=== PATIENT | male | born 1985 | race Hispanic/Latino ===

== ENCOUNTER 2023-08-01 16:51 | Emergency (ER) | payer BC, OTHER ==
[~2023-08-01] VITALS: Ht 172.7 cm; Wt 58.1 kg
[2023-08-01 17:20] LABS: BASOPHILS # (AUTO) 0.04 K/uL (0.00-0.20); BASOPHILS % (AUTO) 0.7 % (0.0-5.0); EOSINOPHILS # (AUTO) 0.09 K/uL (0.00-0.70); EOSINOPHILS % (AUTO) 1.7 % (0.0-8.0); HEMATOCRIT 33.8 % (42-54); IMMATURE GRANULOCYTE ABSOLUTE 0.03 K/uL (0-1); LYMPHOCYTES # (AUTO) 1.6 K/uL (1.0-4.8); LYMPHOCYTES % (AUTO) 29.1 % (21.0-51.0); MEAN CORPUSCULAR HEMOGLOBIN 30.5 pg (27.0-33.0); MEAN CORPUSCULAR HGB CONC 33.4 g/dL (32.0-36.0); MEAN CORPUSCULAR VOLUME 91.4 fL (79-99); MONOCYTES # (AUTO) 0.4 K/uL (0.1-1.0); MONOCYTES % (AUTO) 7.2 % (3.0-13.0); NEUTROPHILS # (AUTO) 3.3 K/uL (1.8-7.7); NEUTROPHILS % (AUTO) 60.7 % (40.0-77.0); PLATELET COUNT (AUTO) 399 K/uL (130-400); RED CELL DISTRIBUTION WIDTH 13.2 % (11.0-15.5); WHITE BLOOD COUNT (AUTO) 5.4 K/uL (4.8-10.8)
[2023-08-01 17:30] LABS: CARBON DIOXIDE 30 mmol/L (21-32); CHLORIDE 91 mmol/L (101-111); CREATININE 0.6 mg/dL (0.5-1.5); GLOMERULAR FILTR. RATE CALC 127 mL/min (>90); GLUCOSE,RANDOM 290 mg/dL (70-105); POTASSIUM 4.5 mmol/L (3.5-5.1); SODIUM SERUM 129 mmol/L (136-145); UREA NITROGEN, BLOOD 12 mg/dL (7-18)
[2023-08-01 17:34] LABS: ALANINE AMINOTRANSFERASE 105 U/L (12-78); ALBUMIN 3.5 g/dL (3.5-5.0); ALCOHOL, BLOOD 127 mg/dL (0-10); ASPARTATE AMINOTRANSFERASE 19 U/L (10-37); BILIRUBIN,TOTAL 0.2 mg/dL (0.2-1.0)
[2023-08-01 17:35] LABS: ACETAMINOPHEN < 1 mcg/mL (10-29); SALICYLATE < 2.8 mg/dL (2.8-20.0)
[2023-08-01 17:54] LABS: APPEARANCE,URINE CLEAR (CLEAR); BILIRUBIN,URINE NEGATIVE (NEGATIVE); COLOR,URINE LIGHT-YELLOW (YELLOW); GLUCOSE, URINE (UA) 200 mg/dL (NEGATIVE); KETONES,URINE NEGATIVE (NEGATIVE); LEUKOCYTE ESTERASE ,URINE NEGATIVE Leu/uL (NEGATIVE); NITRATE,URINE NEGATIVE (NEGATIVE); OCCULT BLOOD,URINE NEGATIVE (NEGATIVE); PH,URINE 5.5 (5.0-8.0); PROTEIN,URINE NEGATIVE (NEGATIVE); UROBILINOGEN,URINE 0.2 mg/dL (0.2-1.0)
[2023-08-01 17:56] LABS: ADD UA MICROSCOPIC YES
[2023-08-01 18:02] LABS: AMPHET/METH SCREEN,URINE NEGATIVE (NEGATIVE); BACTERIA,URINE RARE /HPF (None Seen); BARBITURATE SCREEN, URINE NEGATIVE (NEGATIVE); BENZODIAZEPINES SCREEN,URINE NEGATIVE (NEGATIVE); CANNABINOID SCREEN,URINE POSITIVE (NEGATIVE); COCAINE SCREEN,URINE POSITIVE (NEGATIVE); OPIATE SCREEN,URINE NEGATIVE (NEGATIVE); PHENCYCLIDINE SCREEN,URINE NEGATIVE (NEGATIVE); RBC,URINE 0-1 /HPF (0-1); WBC CLUMP RARE /HPF (0-1)
[2023-08-01] MEDS: 0.9%NACL 1000ML 1,000 ML IV ONE (19:06)
[2023-08-01] MEDS: INSULIN HUMULIN R 100 UNIT/ML 3ML IV ONE (19:07)
[2023-08-02 03:47] VITALS: BP 120/72; PULSE 74; RESP 16; O2SAT 99
[2023-08-02] MEDS: LORAZEPAM 2 MG/ML 1 ML VIAL IVP ONE (05:50)
[2023-08-02] MEDS: M.V.I. IV [ADULT] 10 ML, FOLIC ACID 1 MG, THIAMINE HCL 100 MG in 0.9%NACL 1000ML 1,000 ML IV SCH (05:50)
[2023-08-02] MEDS: NITROGLYCERIN 1GM OINT 1 INCH/1GM TD ONE (05:50)
[2023-08-02] MEDS: THIAMINE HCL 100 MG/ML 2ML VIAL ONE (05:50)
[2023-08-02] MEDS: COMPOUND IV MISC 1 EACH IVSOLN MISC SCH (05:50)
[2023-08-02] MEDS: M.V.I. IV [ADULT] 10 ML VIAL IV ONE (05:51)
[2023-08-02] MEDS: FOLIC ACID 5 MG/ML VIAL ONE (05:51)
== END 2023-08-02 10:25 ==
LOC: EDH 16:51
DX: R45.851 Suicidal ideations (principal); F19.10 Other psychoactive substance abuse, uncomplicated; F41.9 Anxiety disorder, unspecified; F32.A Depression, unspecified; E11.9 Type 2 diabetes mellitus without complications; Z98.890 Other specified postprocedural states; Z79.899 Other long term (current) drug therapy
CPT/HCPCS: 99285; 96361; 96375 ×2; 80053; 80305; 85025; 82948; 36415; 81001; 96365; J1815; G0481; J7030; J3411 ×2; J2060; J3490 ×2

== ENCOUNTER 2023-09-04 01:44 | Inpatient (IN) | payer BC, OTHER ==
[~2023-09-04] VITALS: Ht 172.7 cm; Wt 52.6 kg
[2023-09-04] VITALS (9 sets, daily range): BP systolic 115–149; BP diastolic 63–98; PULSE 83–89; RESP 11–19; O2SAT 96–97
[2023-09-04 01:59] LABS: BASE EXCESS,VENOUS BLOOD GAS 0.1 (-2.0-3.0); DEVICE COMMENT VLINE RN JOSE; HCO3,VENOUS BLOOD GAS 26.5 (21.0-28.0); PCO2,VENOUS BLOOD GAS 50 (32-45); PH,VENOUS BLOOD GAS 7.345 (7.350-7.450); VENT MODE, BG ROOMAIR (ROOM AIR)
[2023-09-04 02:07] LABS: BASOPHILS # (AUTO) 0.03 K/uL (0.00-0.20); BASOPHILS % (AUTO) 0.4 % (0.0-5.0); EOSINOPHILS # (AUTO) 0.04 K/uL (0.00-0.70); EOSINOPHILS % (AUTO) 0.6 % (0.0-8.0); HEMATOCRIT 32.9 % (42-54); IMMATURE GRANULOCYTE ABSOLUTE 0.02 K/uL (0-1); LYMPHOCYTES # (AUTO) 1.8 K/uL (1.0-4.8); LYMPHOCYTES % (AUTO) 26.4 % (21.0-51.0); MEAN CORPUSCULAR HGB CONC 35.6 g/dL (32.0-36.0); MEAN CORPUSCULAR VOLUME 89.9 fL (79-99); MONOCYTES # (AUTO) 0.6 K/uL (0.1-1.0); MONOCYTES % (AUTO) 8.4 % (3.0-13.0); NEUTROPHILS # (AUTO) 4.4 K/uL (1.8-7.7); NEUTROPHILS % (AUTO) 63.9 % (40.0-77.0); PLATELET COUNT (AUTO) 270 K/uL (130-400); RED BLOOD CELL COUNT(AUTO) 3.66 MIL/uL (4.50-6.20); RED CELL DISTRIBUTION WIDTH 12.2 % (11.0-15.5); WHITE BLOOD COUNT (AUTO) 6.9 K/uL (4.8-10.8)
[2023-09-04 02:14] LABS: ADD UA MICROSCOPIC YES; APPEARANCE,URINE CLEAR (CLEAR); BILIRUBIN,URINE NEGATIVE (NEGATIVE); COLOR,URINE LIGHT-YELLOW (YELLOW); GLUCOSE, URINE (UA) >=1000 mg/dL (NEGATIVE); KETONES,URINE NEGATIVE (NEGATIVE); LEUKOCYTE ESTERASE ,URINE NEGATIVE Leu/uL (NEGATIVE); NITRATE,URINE NEGATIVE (NEGATIVE); OCCULT BLOOD,URINE NEGATIVE (NEGATIVE); PROTEIN,URINE NEGATIVE (NEGATIVE); UROBILINOGEN,URINE 0.2 mg/dL (0.2-1.0)
[2023-09-04 02:16] LABS: BACTERIA,URINE RARE /HPF (None Seen); MUCUS,URINE FEW LPF (None Seen); WBC,URINE 0-1 /HPF (0-1)
[2023-09-04 02:29] LABS: ALBUMIN 3.7 g/dL (3.5-5.0); BILIRUBIN,TOTAL 0.2 mg/dL (0.2-1.0); CREATININE 1.5 mg/dL (0.5-1.5); MAGNESIUM 2.1 mg/dL (1.80-2.40); POTASSIUM 3.7 mmol/L (3.5-5.1); TOTAL PROTEIN, SERUM 7.2 g/dL (6.0-8.3)
[2023-09-04] MEDS ORDERED: INSULIN REGULAR, HUMAN 3ML 100 UNIT in 0.9%NACL 100ML 99 ML IV SCH (03:00)
[2023-09-04] MEDS: INSULIN HUMULIN R 100 UNIT/ML 3ML ONE (03:10)
[2023-09-04] MEDS: 0.9%NACL 1000ML 2,500 ML IV ONE (03:22)
[2023-09-04] MEDS: INSULIN REGULAR, HUMAN 3ML 100 UNIT in 0.9%NACL 100ML 100 ML IV SCH ×2 (03:48→05:24)
[2023-09-04 04:32] LABS: AMPHET/METH SCREEN,URINE NEGATIVE (NEGATIVE); BARBITURATE SCREEN, URINE NEGATIVE (NEGATIVE); BENZODIAZEPINES SCREEN,URINE NEGATIVE (NEGATIVE); CANNABINOID SCREEN,URINE POSITIVE (NEGATIVE); COCAINE SCREEN,URINE POSITIVE (NEGATIVE); OPIATE SCREEN,URINE NEGATIVE (NEGATIVE); PHENCYCLIDINE SCREEN,URINE NEGATIVE (NEGATIVE)
[2023-09-04] MEDS ORDERED: PHARMACY COMMUNICATION MISC PRN ×2 (05:00→10:00)
[2023-09-04] MEDS ORDERED: FAMOTIDINE 20MG VIAL IV PRN (05:00)
[2023-09-04] MEDS: D5W-1/2 NS/20MEQ KCL 1,000 ML IV ONE (05:00)
[2023-09-04] MEDS ORDERED: ONDANSETRON 4MG INJ IV PRN (05:00)
[2023-09-04] MEDS: D5W-1/2 NS/20MEQ KCL 1,000 ML IV SCH (05:23)
[2023-09-04] MEDS: 0.9%NACL 1000ML 1,000 ML IV SCH (05:24)
[2023-09-04] MEDS: POTASSIUM CHLORIDE 10MEQ/100ML 100 ML IV PRN (05:51)
[2023-09-04 07:38] LABS: BASOPHILS # (AUTO) 0.04 K/uL (0.00-0.20); BASOPHILS % (AUTO) 0.6 % (0.0-5.0); EOSINOPHILS # (AUTO) 0.06 K/uL (0.00-0.70); EOSINOPHILS % (AUTO) 0.9 % (0.0-8.0); HEMATOCRIT 29.5 % (42-54); IMMATURE GRANULOCYTE ABSOLUTE 0.03 K/uL (0-1); LYMPHOCYTES # (AUTO) 1.7 K/uL (1.0-4.8); LYMPHOCYTES % (AUTO) 25.3 % (21.0-51.0); MEAN CORPUSCULAR HEMOGLOBIN 31.4 pg (27.0-33.0); MEAN CORPUSCULAR HGB CONC 35.3 g/dL (32.0-36.0); MEAN CORPUSCULAR VOLUME 89.1 fL (79-99); MONOCYTES # (AUTO) 0.6 K/uL (0.1-1.0); MONOCYTES % (AUTO) 9.6 % (3.0-13.0); NEUTROPHILS # (AUTO) 4.1 K/uL (1.8-7.7); NEUTROPHILS % (AUTO) 63.1 % (40.0-77.0); PLATELET COUNT (AUTO) 260 K/uL (130-400); RED BLOOD CELL COUNT(AUTO) 3.31 MIL/uL (4.50-6.20); WHITE BLOOD COUNT (AUTO) 6.6 K/uL (4.8-10.8)
[2023-09-04 07:45] LABS: HEMOGLOBIN A1C 12.9 % (4.0-6.0)
[2023-09-04] MEDS ORDERED: INSU100V12 SQ (07:50)
[2023-09-04 07:57] LABS: ALBUMIN 3.5 g/dL (3.5-5.0); BILIRUBIN,TOTAL 0.2 mg/dL (0.2-1.0); CREATININE 0.9 mg/dL (0.5-1.5); MAGNESIUM 1.9 mg/dL (1.80-2.40); POTASSIUM 3.3 mmol/L (3.5-5.1); THYROID STIMULATING HORMONE 1.54 uIU/mL (0.36-3.74); TOTAL PROTEIN, SERUM 6.8 g/dL (6.0-8.3)
[2023-09-04] MEDS: INSULIN GLARGINE 100 UNITS/ML 10 ML VIAL SQ ONE ×2 (08:09→22:30)
[2023-09-04] MEDS: THIAMINE HCL IV SCH (08:12)
[2023-09-04] MEDS: M V I IV SCH (08:12)
[2023-09-04] MEDS: FOLIC ACID IV SCH (08:12)
[2023-09-04] MEDS: [UNRECOGNIZED DRUG - OTHER] IV SCH (08:12)
[2023-09-04 08:17] LABS: INR <= 0.93 (0.85-1.15); PROTHROMBIN TIME 10.6 SEC (9.6-11.6)
[2023-09-04 08:22] LABS: MAGNESIUM 1.9 mg/dL (1.80-2.40); PHOSPHORUS 3.1 mg/dL (2.5-4.9)
[2023-09-04] MEDS: MAGNESIUM 2GM PREMIX 50ML 50 ML IV SCH (08:44)
[2023-09-04] MEDS ORDERED: POTASSIUM CHLORIDE 10% ELIXIR 20 MEQ/15 ML UDCUP PO PRN (09:00)
[2023-09-04] MEDS ORDERED: POTASSIUM CHLORIDE 20MEQ/100ML 100 ML IV PRN (09:00)
[2023-09-04] MEDS ORDERED: MAGNESIUM 2GM PREMIX 50ML 50 ML IV PRN (09:00)
[2023-09-04 09:34] LABS: SARS-CoV-2, RNA, NAAT NEGATIVE SARS CoV-2 (NEGATIVE)
[2023-09-04 09:40] LABS: INFLUENZA TYPE A Negative For Type A (NEGATIVE); INFLUENZA TYPE B Negative For Type B (NEGATIVE)
[2023-09-04 09:50] LABS: HIV 1&2 ANTIBODY Non-Reactive (Negative); HIV-1 p24 Antigen Non-Reactive (Negative)
[2023-09-04] MEDS: ENOXAPARIN SODIUM 30 MG/0.3 ML SQ SCH (09:56)
[2023-09-04] MEDS: THIAMINE HCL 100 MG/ML 2ML VIAL IVP SCH (09:56)
[2023-09-04] MEDS: FAMOTIDINE 20MG VIAL IV SCH (09:57)
[2023-09-04] MEDS ORDERED: LORAZEPAM 2 MG/ML 1 ML VIAL IVP PRN (10:00)
[2023-09-04] MEDS: INSULIN HUMULIN R 100 UNIT/ML 3ML SQ SCH (11:18)
[2023-09-04 13:57] LABS: CREATININE 0.9 mg/dL (0.5-1.5); POTASSIUM 3.7 mmol/L (3.5-5.1)
[2023-09-04 17:49] LABS: CREATININE 0.9 mg/dL (0.5-1.5); POTASSIUM 3.8 mmol/L (3.5-5.1)
[2023-09-04] MEDS: INSULIN GLARGINE 100 UNITS/ML 10 ML VIAL SQ SCH (20:38)
[2023-09-04] MEDS ORDERED: DEXTROSE 50%-WATER 50 ML DISP.SYRIN IV PRN (23:00)
[2023-09-04] MEDS ORDERED: GLUCAGON 1MG KIT 1 MG ML IM PRN (23:00)
[2023-09-04 23:12] LABS: CREATININE 1.1 mg/dL (0.5-1.5); POTASSIUM 3.5 mmol/L (3.5-5.1)
[2023-09-05] VITALS (8 sets, daily range): BP systolic 141–153; BP diastolic 78–104; PULSE 74–81; RESP 17–19; O2SAT 98–100
[2023-09-05 04:28] LABS: BASOPHILS # (AUTO) 0.03 K/uL (0.00-0.20); BASOPHILS % (AUTO) 0.4 % (0.0-5.0); EOSINOPHILS # (AUTO) 0.11 K/uL (0.00-0.70); EOSINOPHILS % (AUTO) 1.6 % (0.0-8.0); HEMATOCRIT 29.5 % (42-54); IMMATURE GRANULOCYTE ABSOLUTE 0.02 K/uL (0-1); LYMPHOCYTES # (AUTO) 1.9 K/uL (1.0-4.8); LYMPHOCYTES % (AUTO) 26.6 % (21.0-51.0); MEAN CORPUSCULAR HEMOGLOBIN 31.4 pg (27.0-33.0); MEAN CORPUSCULAR HGB CONC 34.6 g/dL (32.0-36.0); MEAN CORPUSCULAR VOLUME 90.8 fL (79-99); MONOCYTES # (AUTO) 0.8 K/uL (0.1-1.0); MONOCYTES % (AUTO) 11.9 % (3.0-13.0); NEUTROPHILS # (AUTO) 4.2 K/uL (1.8-7.7); NEUTROPHILS % (AUTO) 59.2 % (40.0-77.0); PLATELET COUNT (AUTO) 248 K/uL (130-400); RED BLOOD CELL COUNT(AUTO) 3.25 MIL/uL (4.50-6.20); RED CELL DISTRIBUTION WIDTH 12.2 % (11.0-15.5)
[2023-09-05 04:44] LABS: ALBUMIN 2.9 g/dL (3.5-5.0); BILIRUBIN,TOTAL 0.2 mg/dL (0.2-1.0); CREATININE 0.7 mg/dL (0.5-1.5); POTASSIUM 3.3 mmol/L (3.5-5.1); TOTAL PROTEIN, SERUM 6.1 g/dL (6.0-8.3)
[2023-09-05] MEDS: INSULIN HUMULIN R 100 UNIT/ML 3ML SQ SCH (06:57)
[2023-09-05] MEDS: INSULIN GLARGINE 100 UNITS/ML 10 ML VIAL SQ SCH ×2 (06:58→20:36)
[2023-09-05] MEDS: KCL 20 MEQ ERTAB PO PRN (09:19)
[2023-09-05] MEDS: LISINOPRIL 2.5 MG TABLET PO SCH (09:19)
[2023-09-05] MEDS: FAMOTIDINE 20MG TAB PO SCH (20:36)
[2023-09-05] MEDS ORDERED: INSULIN GLARGINE 100 UNITS/ML 10 ML VIAL SQ SCH (21:00)
[2023-09-06] VITALS (10 sets, daily range): BP systolic 121–165; BP diastolic 77–108; PULSE 66–85; RESP 17–19; O2SAT 98–99
[2023-09-06 03:54] LABS: BASOPHILS # (AUTO) 0.03 K/uL (0.00-0.20); BASOPHILS % (AUTO) 0.5 % (0.0-5.0); EOSINOPHILS # (AUTO) 0.08 K/uL (0.00-0.70); EOSINOPHILS % (AUTO) 1.3 % (0.0-8.0); HEMATOCRIT 29.6 % (42-54); IMMATURE GRANULOCYTE ABSOLUTE 0.02 K/uL (0-1); LYMPHOCYTES # (AUTO) 1.5 K/uL (1.0-4.8); LYMPHOCYTES % (AUTO) 24.6 % (21.0-51.0); MEAN CORPUSCULAR HEMOGLOBIN 31.3 pg (27.0-33.0); MEAN CORPUSCULAR HGB CONC 33.4 g/dL (32.0-36.0); MEAN CORPUSCULAR VOLUME 93.7 fL (79-99); MONOCYTES # (AUTO) 0.7 K/uL (0.1-1.0); NEUTROPHILS # (AUTO) 3.9 K/uL (1.8-7.7); NEUTROPHILS % (AUTO) 62.3 % (40.0-77.0); PLATELET COUNT (AUTO) 215 K/uL (130-400); RED BLOOD CELL COUNT(AUTO) 3.16 MIL/uL (4.50-6.20); RED CELL DISTRIBUTION WIDTH 11.9 % (11.0-15.5); WHITE BLOOD COUNT (AUTO) 6.3 K/uL (4.8-10.8)
[2023-09-06 04:13] LABS: BILIRUBIN,TOTAL 0.1 mg/dL (0.2-1.0); CREATININE 0.9 mg/dL (0.5-1.3); POTASSIUM 3.9 mmol/L (3.5-5.1); TOTAL PROTEIN, SERUM 6.2 g/dL (6.0-8.3)
[2023-09-06] MEDS: INSULIN HUMULIN R 100 UNIT/ML 3ML SQ SCH ×2 (06:25→06:26)
[2023-09-06] MEDS: INSULIN GLARGINE 100 UNITS/ML 10 ML VIAL SQ SCH (08:52)
[2023-09-06] MEDS: HYDRALAZINE 20MG/ML VIAL IV PRN (17:56)
[2023-09-06] MEDS: CHLORDIAZEPOXIDE HCL 25 MG CAP PO PRN (22:17)
[2023-09-07 05:42] VITALS: BP 133/89; PULSE 76; RESP 18
[2023-09-07] MEDS: INSULIN HUMULIN R 100 UNIT/ML 3ML SQ SCH (05:58)
[2023-09-07 07:41] VITALS: BP 117/80; PULSE 71; RESP 18
[2023-09-07] MEDS: INSULIN GLARGINE 100 UNITS/ML 10 ML VIAL SQ SCH (08:38)
[2023-09-07] MEDS ORDERED: INSU10VI3 SQ (10:18)
[2023-09-07 10:41] VITALS: O2SAT 98
[2023-09-07 11:52] VITALS: BP 126/82; PULSE 80; RESP 18
[2023-09-08 16:03] LABS: HEPATITIS A IGM ANTIBODY Non-Reactive (Nonreactive); HEPATITIS B CORE IGM ANTIBODY Non-Reactive (Negative); HEPATITIS B SURFACE ANTIGEN Non-Reactive (Nonreactive); HEPATITIS C ANTIBODY Non-Reactive (Nonreactive)
== END 2023-09-07 12:17 | disposition home or self-care (01) | DRG 637 ==
LOC: EDH 01:44 → EDHIP 01:45 → 2CV 07:28 → 4DH 13:30
PROVIDERS: ADMIT Internal Medicine; ATTEND Internal Medicine
DX: E11.10 Type 2 diabetes mellitus with ketoacidosis without coma (principal); K85.90 Acute pancreatitis without necrosis or infection, unspecified; E44.0 Moderate protein-calorie malnutrition; Z59.00 Homelessness unspecified; Z68.1 Body mass index [BMI] 19.9 or less, adult; F41.9 Anxiety disorder, unspecified; I10 Essential (primary) hypertension; E86.0 Dehydration; D64.9 Anemia, unspecified; F10.229 Alcohol dependence with intoxication, unspecified; I73.89 Other specified peripheral vascular diseases; Z79.4 Long term (current) use of insulin; Z91.199 Patient's noncompliance with other medical treatment and regimen due to unspecified reason
CPT/HCPCS: 36415; 36600; 71045; 80048; 80053; 80061; 80074; 80305; 81001; 82010; 82306; 82533; 82550; 82803; 82948; 83036; 83605; 83690; 83735; 83880; 84100; 84207; 84443; 84484; 85025; 85610; 85730; 86592; 86701; 87040; 87390; 87635; 87804; G0378; J0360; J1650; J1815; J3411; J3475; J3480; J3490; J7030

== ENCOUNTER 2024-07-30 00:08 | Emergency (ER) | payer OTHER ==
[~2024-07-30] VITALS: Ht 172.7 cm; Wt 59.0 kg
[~2024-07-30 00:08] MED LIST: INSU10VI3 SQ
--- NOTE | 2024-07-30 00:31 | ERN ---
ED Note History of Present Illness Stated Complaint: MEDICAL CLEARANCE, HIGH BLOOD SUGAR Chief Complaint: Medical Clearance Time Seen by MD: 00:13 Dictation: This is a 39-year-old male who was sent from [facility] unit for medical clearance. Patient has a long history of alcoholism for more than 20 years and he is seeking help at [facility]. Also has a known history of diabetes and for hyperglycemia he was sent for evaluation. Temperature 98.1 pulse 94 respirations 16 blood pressure 144/89 with a pulse oximetry of 99% on room air Chronic medical problems include diabetes mellitus, hypertension, history of pancreatitis and heavy alcoholism Allergies: Coded Allergies: No Known Drug Allergies (Unverified Allergy, Unknown, 08/01/23) Home Meds Active Scripts Insuln Asp Prt/Insulin Aspart (Novolog Mix 70-30 Vial) 100 Unit/Ml (70-30) Vial, 20 UNIT SQ AM, #1 VIAL Prov:JEREMY GARCÍA AGPCNP 09/07/23 Past Medical History Past Medical History: Alcoholism, Diabetes-Type II, Hypertension Surgical History: Other Surgical History Other: L ANKLE SX Family History: Negative Social History: ETOH, Lives with family RN Note Reviewed/Agreed w/PFSH: Yes Review of System Dictation Constitutional: Negative for fever,chills, and weight loss Eyes: Negative for injury, pain,redness, and discharge ENT: Negative for injury,pain or swelling Cardiovascular: Negative for chest pain, palpitations, and edema Respiratory: Negative for shortness of breath, cough, and wheezing, Abdomen/GI: Negative for abdominal pain, nausea, vomiting, diarrhea, and consti pation Back: Negative for injury and pain : Negative for injury, bleeding and discharge MS/Extremity: Negative for injury and deformity Skin: Negative for rash, and discoloration Neuro: Negative for headache, weakness, numbness, tingling, and seizure Psych: Negative for suicide ideation, homicidal ideation, and hallucinations Initial Vital Sign VS Vital Signs Date Time Temp Pulse Resp B/P (MAP) Pulse Ox O2 Delivery O2 Flow Rate FiO2 07/30/24 00:09 98.1 94 16 144/89 99 Room Air 0 07/30/24 01:15 21 Physical Exam Dictation General: awake, alert, NAD unkempt chronically ill-appearing Head/Face: Normocephalic, atraumatic Eyes: PERRL, EOMI, vision at baseline ENT: oral cavity clear, TMs clear, no signs of infection poor dentition Neck: Trachea midline, supple, no nuchal rigidity Cardiovascular: RRR, normal S1/S2, No MRGs, no JVD Respiratory: CTAB, no respiratory distress, No rales or wheezes Abdomen: Soft, non-tender, non-distended, normal bowel sounds, no guarding or rebound. Skin: Warm, dry, normal turgor, no rash MS/Extremity: Pulses equal, no cyanosis, neurovascular intact, FROM Neuro: COAx4, GCS 15, strength 5/5, CN 2-12 intact, normal cerebellar exam, normal gait, Psych: Normal behavior, mood, and affect normal Extremities-trace edema without any palpable cords, Homans sign is negative Results (Laboratory/Radiology) Laboratory/Radiology Laboratory Tests Test 07/30/24 00:41 07/30/24 01:35 07/30/24 04:47 07/30/24 06:27 White Blood Count 5.3 K/uL (4.8-10.8) Red Blood Count 3.80 MIL/uL (4.50-6.20) L Hemoglobin 11.5 g/dL (14.0-18.0) L Hematocrit 34.0 % (42-54) L Mean Corpuscular Volume 89.5 fL (79-99) Mean Corpuscular Hemoglobin 30.3 pg (27.0-33.0) Mean Corpuscular Hemoglobin Concent 33.8 g/dL (32.0-36.0) Red Cell Distribution Width 13.2 % (11.0-15.5) Platelet Count 282 K/uL (130-400) Mean Platelet Volume 10.1 fL (7.5-10.5) Immature Granulocyte % (Auto) 0.2 % (0-1) Neutrophils (%) (Auto) 60.5 % (40.0-77.0) Lymphocytes (%) (Auto) 28.3 % (21.0-51.0) Monocytes (%) (Auto) 8.3 % (3.0-13.0) Eosinophils (%) (Auto) 1.9 % (0.0-8.0) Basophils (%) (Auto) 0.8 % (0.0-5.0) Neutrophils # (Auto) 3.2 K/uL (1.8-7.7) Lymphocytes # (Auto) 1.5 K/uL (1.0-4.8) Monocytes # (Auto) 0.4 K/uL (0.1-1.0) Eosinophils # (Auto) 0.10 K/uL (0.00-0.70) Basophils # (Auto) 0.04 K/uL (0.00-0.20) Absolute Immature Granulocyte (auto 0.01 K/uL (0-1) Nucleated Red Blood Cells 0.0 % (0.0-0.19) Sodium Level 126 mmol/L (136-145) L Potassium Level 4.8 mmol/L (3.5-5.1) Chloride Level 87 mmol/L (101-111) *L Carbon Dioxide Level 29 mmol/L (21-32) Blood Urea Nitrogen 15 mg/dL (7-18) Creatinine 1.0 mg/dL (0.5-1.3) Glomerular Filtration Rate Calc 98 mL/min (>90) Random Glucose 667 mg/dL (70-105) *H Total Calcium 9.3 mg/dL (8.5-10.1) Lipase 14 U/L (16-77) L Salicylates Level 3.2 mg/dL (2.8-20.0) Acetaminophen Level < 1 mcg/mL (10-29) L Serum Alcohol 7 mg/dL (0-10) Urine Color COLORLESS (YELLOW) Urine Appearance CLEAR (CLEAR) Urine pH 5.0 (5.0-8.0) Urine Specific [place] 1.018 (1.001-1.031) Urine Protein NEGATIVE mg/dL (NEGATIVE) Urine Glucose (UA) >=1000 mg/dL (NEGATIVE) H Urine Ketones 5 mg/dL (NEGATIVE) H Urine Occult Blood NEGATIVE (NEGATIVE) Urine Nitrate NEGATIVE (NEGATIVE) Urine Bilirubin NEGATIVE mg/dL (NEGATIVE) Urine Urobilinogen 0.2 mg/dL (0.2-1.0) Urine Leukocyte Esterase NEGATIVE Suzi/uL Urine RBC 0-1 /HPF (0-1) Urine WBC 0-1 /HPF (0-1) Urine Squamous Epithelial Cells RARE /HPF (0-2) Urine Bacteria None /HPF (None Seen) Urine Opiates Screen NEGATIVE (NEGATIVE) Urine Barbiturates Screen NEGATIVE (NEGATIVE) Urine Phencyclidine Screen NEGATIVE (NEGATIVE) Urine Amphetamines Screen NEGATIVE (NEGATIVE) Urine Benzodiazepines Screen NEGATIVE (NEGATIVE) Urine Cocaine Screen POSITIVE (NEGATIVE) H Urine Marijuana (THC) Screen POSITIVE (NEGATIVE) H Whole Blood Glucose 352 MG/DL (70-110) H 71 MG/DL (70-110) # Bedside Glucose Comment Notified Nurse Test 07/30/24 08:09 Whole Blood Glucose 212 MG/DL (70-110) #H Bedside Glucose Comment Notified Nurse Labs Reviewed?: Yes ED Course ED Course Orders Procedure Category Date Status Time Alcohol, Blood LAB 07/30/24 Complete 00:14 Cbc With Differential LAB 07/30/24 Complete 00:14 Basic Metabolic Panel LAB 07/30/24 Complete 00:14 Acetaminophen LAB 07/30/24 Complete 00:14 Urinalysis Profile LAB 07/30/24 Complete 00:14 Drug Screen Urine LAB 07/30/24 Complete 00:14 Salicylate LAB 07/30/24 Complete 00:14 Lipase LAB 07/30/24 Complete 00:41 0.9%Nacl 1000ml (Ns PHA 07/30/24 Complete 1000ml) 01:30 Insulin Regular, PHA 07/30/24 Complete Human 3ml (Humulin R 01:30 Random Accucheck At CPOE 07/30/24 Transmitted Bedside 04:44 Insulin Regular, PHA 07/30/24 Complete Human 3ml (Humulin R 05:00 0.9%Nacl 1000ml (Ns PHA 07/30/24 Complete 1000ml) 05:00 Random Accucheck At CPOE 07/30/24 Transmitted Bedside 06:15 Current Medications Medications (Trade) Dose Ordered Sig/Maik Route PRN Reason Start Time Stop Time Status Last Admin Dose Admin Insulin Human Regular (humuLIN R 100 UNIT/ML 3ML) 10 unit ONCE ONCE SQ 07/30/24 05:00 07/30/24 05:01 DC 07/30/24 05:02 Insulin Human Regular (humuLIN R 100 UNIT/ML 3ML) 12 unit ONCE ONCE IV 07/30/24 01:30 07/30/24 01:31 DC 07/30/24 01:34 Sodium Chloride 1,000 ml @ 0 mls/hr ONCE ONCE IV 07/30/24 01:30 07/30/24 01:31 DC 07/30/24 01:32 Sodium Chloride 1,000 ml @ 0 mls/hr ONCE ONCE IV 07/30/24 05:00 07/30/24 05:01 DC 07/30/24 05:00 Vital Signs Date Time Temp Pulse Resp B/P (MAP) Pulse Ox O2 Delivery O2 Flow Rate FiO2 07/30/24 09:40 99.0 82 16 149/90 98 Room Air* 0 21 07/30/24 05:17 98.1 82 16 138/82 98 Room Air* 0 21 07/30/24 03:15 98.1 84 16 136/84 99 Room Air* 0 21 07/30/24 01:15 98.1 88 16 142/88 99 Room Air* 0 21 07/30/24 00:09 98.1 94 16 144/89 99 Room Air 0 We will perform diagnostic labs, and administer medications according to the patient's complaint. Once the results are available, will review and personally interpreted the labs to rule out any acute life-threatening emergency the trach require immediate intervention and treatment. I will then re-evaluate the patient after treatment and diagnostic exams have return to determine whether the patient requires any further testing, can safely be discharged home or need further admission to hospital for additional treatment and evaluation. CBC is with a normal limits. BNP 7 initial results showed a sodium of 126 BUN and creatinine are 15 and 1.0 with a glucose of 660. Lipase level is 14 ETOH is 7 salicylate level is 3.2 Tylenol level is pending We will initiate IV fluids and insulin and monitor Accu-Cheks closely 4:49 a.m. patient received fluids and repeat Accu-Chek was 352. Much improved than 667 at presentation We will give additional fluids and insulin 6:29 a.m.-repeat Accu-Chek 71-patient is very alert awake does not have any complaints feels better ordered breakfast for him Medical Decision Making MDM MDM: Differential diagnosis: Hyperglycemia, alcohol intoxication, dehydration Rationale: Tests considered and ordered secondary to shared decision making include: Previous outside records reviewed: Old ER visits. Risk of complication and/or morbidity or mortality of patient management: None Medications-Per medication reconciliation Need for hospitalization: Patient does not meet criteria for hospitalization. Need for emergency major/minor surgery: No There are no social concerns with this patient. Prescription drug management Prescriptions will include symptomatic care Patient's prior external medical records from other ER visits were reviewed by me as indicated. Prior testing and results from previous visits were reviewed. Prior tests were taken into account with medical decision making and resource ut ilization, independent historian/historians were used to obtain complete medical history. I independently interpreted the test that were performed, results were reviewed by me and considered findings on radiology if ordered. Medical management and examination interpretation discussions were had by me with other qualified healthcare professionals as indicated for the patient's car e. Problem List Problem List: (1) Uncontrolled diabetes mellitus with hyperglycemia (2) Alcoholism (3) Medical non-compliance (4) Substance abuse (5) Medical clearance for psychiatric admission DX & DISP Disposition: Discharge Departure Impression: Primary Impression: Uncontrolled diabetes mellitus with hyperglycemia Additional Impressions: Alcoholism, Medical non-compliance, Medical clearance for psychiatric admission Condition: Stable Additional Instructions: Patient and the caregiver have been informed of all the diagnostic tests and the imaging conducted during the today's visit to the emergency room and has verbalized understanding of the results I have personally reviewed and interpreted all diagnostic exams performed here in the ER today as well as the vital signs documented by the nursing staff. The patient is now being discharged to [facility] unit and should follow up with the primary care physician or the specialist as directed by the ER staff. Referrals: SELF,REFERRAL (PCP) Time of Disposition: 10:53 ALEISHA HORNER MD Jul 30, 2024 00:31 ROSALINDA HOLLOWAY MD Jul 30, 2024 10:54
[2024-07-30 01:02] LABS: BASOPHILS # (AUTO) 0.04 K/uL (0.00-0.20); BASOPHILS % (AUTO) 0.8 % (0.0-5.0); EOSINOPHILS % (AUTO) 1.9 % (0.0-8.0); IMMATURE GRANULOCYTE ABSOLUTE 0.01 K/uL (0-1); LYMPHOCYTES # (AUTO) 1.5 K/uL (1.0-4.8); LYMPHOCYTES % (AUTO) 28.3 % (21.0-51.0); MEAN CORPUSCULAR HEMOGLOBIN 30.3 pg (27.0-33.0); MEAN CORPUSCULAR HGB CONC 33.8 g/dL (32.0-36.0); MEAN CORPUSCULAR VOLUME 89.5 fL (79-99); MONOCYTES # (AUTO) 0.4 K/uL (0.1-1.0); MONOCYTES % (AUTO) 8.3 % (3.0-13.0); NEUTROPHILS # (AUTO) 3.2 K/uL (1.8-7.7); NEUTROPHILS % (AUTO) 60.5 % (40.0-77.0); PLATELET COUNT (AUTO) 282 K/uL (130-400); RED CELL DISTRIBUTION WIDTH 13.2 % (11.0-15.5); WHITE BLOOD COUNT (AUTO) 5.3 K/uL (4.8-10.8)
[2024-07-30 01:18] LABS: ALCOHOL, BLOOD 7 mg/dL (0-10); CARBON DIOXIDE 29 mmol/L (21-32); GLOMERULAR FILTR. RATE CALC 98 mL/min (>90); POTASSIUM 4.8 mmol/L (3.5-5.1); SALICYLATE 3.2 mg/dL (2.8-20.0); SODIUM SERUM 126 mmol/L (136-145); UREA NITROGEN, BLOOD 15 mg/dL (7-18)
[2024-07-30 01:20] LABS: ACETAMINOPHEN < 1 mcg/mL (10-29)
[2024-07-30 01:21] LABS: CHLORIDE 87 mmol/L (101-111); GLUCOSE,RANDOM 667 mg/dL (70-105)
[2024-07-30] MEDS: 0.9%NACL 1000ML 1,000 ML IV ONE ×2 (01:32→05:00)
[2024-07-30] MEDS: INSULIN humuLIN R 100 UNIT/ML 3ML IV ONE (01:34)
[2024-07-30 02:54] LABS: APPEARANCE,URINE CLEAR (CLEAR); BILIRUBIN,URINE NEGATIVE (NEGATIVE); COLOR,URINE COLORLESS (YELLOW); GLUCOSE, URINE (UA) >=1000 mg/dL (NEGATIVE); KETONES,URINE 5 mg/dL (NEGATIVE); LEUKOCYTE ESTERASE ,URINE NEGATIVE Leu/uL (NEGATIVE); NITRATE,URINE NEGATIVE (NEGATIVE); OCCULT BLOOD,URINE NEGATIVE (NEGATIVE); PROTEIN,URINE NEGATIVE (NEGATIVE); UROBILINOGEN,URINE 0.2 mg/dL (0.2-1.0)
[2024-07-30 03:01] LABS: AMPHET/METH SCREEN,URINE NEGATIVE (NEGATIVE); BARBITURATE SCREEN, URINE NEGATIVE (NEGATIVE); BENZODIAZEPINES SCREEN,URINE NEGATIVE (NEGATIVE); CANNABINOID SCREEN,URINE POSITIVE (NEGATIVE); COCAINE SCREEN,URINE POSITIVE (NEGATIVE); OPIATE SCREEN,URINE NEGATIVE (NEGATIVE); PHENCYCLIDINE SCREEN,URINE NEGATIVE (NEGATIVE)
[2024-07-30 03:03] LABS: ADD UA MICROSCOPIC YES; RBC,URINE 0-1 /HPF (0-1); SQUAMOUS EPITHELIAL CELL,UR RARE /HPF (0-2); WBC,URINE 0-1 /HPF (0-1)
[2024-07-30] MEDS: INSULIN humuLIN R 100 UNIT/ML 3ML SQ ONE (05:02)
[2024-07-30 11:00] VITALS: BP 145/89; PULSE 78; RESP 16; TEMP 98.9; O2SAT 98
== END 2024-07-30 11:35 | disposition home or self-care (01) ==
LOC: EDH 00:08
DX: E11.65 Type 2 diabetes mellitus with hyperglycemia (principal); F10.20 Alcohol dependence, uncomplicated; I10 Essential (primary) hypertension; Z79.899 Other long term (current) drug therapy; Z04.6 Encounter for general psychiatric examination, requested by authority; Z91.198 Patient's noncompliance with other medical treatment and regimen for other reason; Y90.0 Blood alcohol level of less than 20 mg/100 ml
CPT/HCPCS: 99285; 96374; 96361 ×2; 80048; 80305; 83690; 85025; 82948 ×3; 36415; 96372; 81001; J1815 ×2; G0481; J7030 ×2

== ENCOUNTER 2024-08-20 11:54 | Inpatient (IN) | payer OTHER ==
[~2024-08-20] VITALS: Ht 172.7 cm; Wt 54.4 kg
[2024-08-20] VITALS (18 sets, daily range): BP systolic 91–137; BP diastolic 49–77; PULSE 86–93; RESP 12–57; TEMP 97; O2SAT 97–100
[~2024-08-20 11:54] MED LIST changes: +CEFD300C3 PO; +INSU100I35 SQ; -INSU10VI3 SQ; +THIA100T91 PO
--- NOTE | 2024-08-20 12:19 | ERN ---
General Chief Complaint: Abdominal Pain Stated Complaint: ABD PAIN Time Seen by MD: 12:08 History of Present Illness Initial Comments 39-year-old male, history of chronic pancreatitis, insulin-dependent diabetes, who presents for epigastric pain, vomiting, and increased respirations. Patient reports he ran out of insulin couple of days ago. Since then he has felt short of breath and he persistently vomits. He was some generalized abdominal discomfort. He has been in DKA before. He also reports that he drank a few beers yesterday, now he was epigastric pain and he is worried that he is having a flare-up of his pancreatitis as well. He reports that he was is not drink daily and does not have withdrawal. No PCP no surgical history Allergies: Coded Allergies: No Known Drug Allergies (Unverified Allergy, Unknown, 08/01/23) Home Meds Active Scripts Thiamine HCl (Vitamin B-1) 100 Mg Tablet, 100 MG PO DAILY for 5 Days, #5 TAB Prov:RICKY SWAIN NP 08/16/24 Cefdinir (Cefdinir) 300 Mg Capsule, 1 CAP PO BID for 5 Days, #10 CAP 0 Refills Prov:RICKY SWAIN NP 08/16/24 Insulin NPH Hum/Reg Insulin Hm (Novolin 70-30 Flexpen) 100 Unit/Ml (70-30) Insuln.pen, 100 UNIT SQ BID for 30 Days, #1 SYRINGE Prov:RICKY SWAIN NP 08/16/24 Discontinued Reported Medications [Levemir] No Conflict Check 08/15/24 Discontinued Scripts Insuln Asp Prt/Insulin Aspart (Novolog Mix 70-30 Vial) 100 Unit/Ml (70-30) Vial, 20 UNIT SQ AM, #1 VIAL Prov:JEREMY GARCÍA 09/07/23 Past Medical History Past Medical History: Diabetes-Type II Medical History Other: PANCREATITIS Past Surgical History: None Surgical History Other: L ANKLE SX Family History Family History: Negative Social History Social History: ETOH, Lives with family ROS Dictation CONSTITUTIONAL: Generalized weakness HEAD/FACE: No signs of trauma. EENT: No eye pain, no blurred vision, no tearing, no double vision, no ear pain, no ear discharge, no nose pain, no nasal congestion, no throat pain, no throat swelling, no mouth pain. RESPIRATORY: No cough, no orthopnea, no SOB, no stridor, no wheezing. CARDIOVASCULAR: No chest pain, no edema, no palpitations, no syncope. GASTROINTESTINAL/ABDOMINAL: Generalized abdominal pain vomiting GENITOURINARY: No abnormal discharge, no dysuria, no frequent urination, no hematuria. No complaints of pain in the genitals. MUSCULOSKELETAL: No back pain, no gout, no joint pain, no joint swelling, no muscle pain, no muscle stiffness, no neck pain. INTEGUMENTARY: No change in color, no change in hair/nails, no dryness, no lesion, no lumps, no rash. NEUROLOGICAL/PSYCH: No anxiety, not depressed, no emotional problem, no headache, no numbness, no pre-existing deficit, no history of seizures, no tremors, no weakness. HEMATOLOGIC/LYMPHATIC: Not anemic, no history of blood clots, no apparent bleeding, no bruising, glands not swollen. All Systems Negative, Except as Noted. Physical Exam Physical Exam Dictation VITAL SIGNS: Reviewed. GENERAL APPEARANCE: Moderate distress HEAD AND FACE: Non-traumatic. EYES: PERRL, pink conjunctivas, eyelid no trauma, anterior chamber clear. EARS: Pinnas intact and no signs of trauma or erythema. Ear canals clear and no discharge. TMs no erythema. NOSE: No discharge, no bleeding. OROPHARYNX: Mouth normal, teeth no caries, tongue pink. Pharynx clear, no erythema. Tonsils no exudates, no abscesses noted. Mucous membrane moist. NECK: Supple, non-tender, no thyromegaly, no masses, no JVD, no bruits. BREAST: Deferred. CHEST: No tenderness, no crepitus, no paradoxical movement, no retractions. LUNGS: Clear, well-ventilated, symmetric, no rales, no wheezing, no rhonchi, no stridor, good breath sounds bilaterally. HEART: Regular rate, regular rhythm, no murmur, no gallops. VASCULAR: No peripheral edema. ABDOMEN: Soft, positive bowel sounds, nondistended, no guarding, nontender, no rebound, no masses no hepatomegaly, no splenomegaly, no Aguila's sign, no hernias. RECTAL: Deferred. GENITAL: Deferred. NEUROLOGICAL: Normal speech, gross motor function intact, gross sensory function intact. MUSCULOSKELETAL: Neck nontender, full range of motion, back nontender, full range of motion. EXTREMITIES: Nontender, full range of motion. SKIN: Color pink, dry, no turgor, no rash, no lacerations, no abrasions, no contusions. LYMPHATICS: Deferred. Results Laboratory and Microbiology Lab and Micro Result Laboratory Tests Test 08/20/24 12:23 08/20/24 12:24 08/20/24 12:30 Whole Blood Glucose 476 MG/DL (70-110) *H Bedside Glucose Comment Notified Nurse White Blood Count 10.6 K/uL (4.8-10.8) Red Blood Count 3.80 MIL/uL (4.50-6.20) L Hemoglobin 11.5 g/dL (14.0-18.0) L Hematocrit 36.7 % (42-54) L Mean Corpuscular Volume 96.6 fL (79-99) Mean Corpuscular Hemoglobin 30.3 pg (27.0-33.0) Mean Corpuscular Hemoglobin Concent 31.3 g/dL (32.0-36.0) L Red Cell Distribution Width 13.7 % (11.0-15.5) Platelet Count 445 K/uL (130-400) H Mean Platelet Volume 9.8 fL (7.5-10.5) Immature Granulocyte % (Auto) 1.8 % (0-1) H Neutrophils (%) (Auto) 70.6 % (40.0-77.0) Lymphocytes (%) (Auto) 15.6 % (21.0-51.0) L Monocytes (%) (Auto) 11.2 % (3.0-13.0) Eosinophils (%) (Auto) 0.1 % (0.0-8.0) Basophils (%) (Auto) 0.7 % (0.0-5.0) Neutrophils # (Auto) 7.5 K/uL (1.8-7.7) Lymphocytes # (Auto) 1.7 K/uL (1.0-4.8) Monocytes # (Auto) 1.2 K/uL (0.1-1.0) H Eosinophils # (Auto) 0.01 K/uL (0.00-0.70) Basophils # (Auto) 0.07 K/uL (0.00-0.20) Absolute Immature Granulocyte (auto 0.19 K/uL (0-1) Nucleated Red Blood Cells 0.0 % (0.0-0.19) Sodium Level 132 mmol/L (136-145) L Potassium Level 5.6 mmol/L (3.5-5.1) H Chloride Level 94 mmol/L (101-111) L Carbon Dioxide Level 8 mmol/L (21-32) *L Blood Urea Nitrogen 35 mg/dL (7-18) H Creatinine 2.0 mg/dL (0.5-1.3) H Glomerular Filtration Rate Calc 43 mL/min (>90) Random Glucose 492 mg/dL (70-105) *H Whole Blood Ketones Quantitative 5.4 mmol/L (0.0-0.6) H Total Calcium 8.9 mg/dL (8.5-10.1) Total Bilirubin 0.5 mg/dL (0.2-1.0) Aspartate Amino Transf (AST/SGOT) 11 U/L (10-37) Alanine Aminotransferase (ALT/SGPT) 20 U/L (12-78) Alkaline Phosphatase 100 U/L (50-136) Troponin I High Sensitivity 7 ng/L (4-75) Total Protein 6.8 g/dL (6.0-8.3) Albumin 3.2 g/dL (3.5-5.0) L Amylase Level 35 U/L (25-115) Lipase 16 U/L (16-77) Blood Gas Specimen Type Arterial Arterial Blood pH 7.066 (7.350-7.450) Arterial Blood Partial Pressure CO2 < 15 mmHg (35-48) *L Arterial Blood Partial Pressure O2 165.8 mmHg (83.0-108.0) H Arterial Blood HCO3 2.9 mmol/L (21.0-28.0) L Arterial Blood Oxygen Saturation 97.9 % (94.0-98.0) Arterial Blood Base Excess -25.1 mmol/L (-2.0-3.0) L Hemoglobin (Blood Gas) 11.5 g/dL (13.5-17.5) L Sodium (Blood Gas) 133 MMOL/L (136-145) L Bedside Potassium (Blood Gas) 5.4 MMOL/L (3.4-4.5) H Bedside Chloride (Blood Gas) 97 MMOL/L (98-107) L Bedside Glucose (Blood Gas) 485 MG/DL (65-95) *H Bedside Ionized Calcium (Blood Gas) 1.32 MMOL/L (1.15-1.33) Bedside Lactic Acid (Blood Gas) 1.65 MMOL/L (0.36-0.75) H Blood Gas Temperature 37.0 CELSIUS (35.5-37.0) Blood Gas Flow-by 2.00 L/min (0.00-15.00) Blood Gas Vent Mode 2LNC (ROOM AIR) FiO2 28.0 % Blood Gas Specimen Comment RR ED Course Orders Procedure Category Date Status Time Cbc With Differential LAB 08/20/24 Complete 11:57 Comprehensive LAB 08/20/24 Complete Metabolic Panel 11:57 Troponin I High LAB 08/20/24 Complete Sensitivity 11:57 12 Lead Ekg Tracing- EKG 08/20/24 Complete Technical 11:57 Chest 1vw RAD 08/20/24 Resulted 11:57 Amylase LAB 08/20/24 Complete 11:57 Lipase LAB 08/20/24 Complete 11:57 Urinalysis Profile LAB 08/20/24 Logged 11:58 Drug Screen Urine LAB 08/20/24 Logged 11:58 Arterial Blood Gas + RT 08/20/24 Transmitted 12:16 Ketone Blood LAB 08/20/24 Complete Quantitative 12:16 Lactated Ringers PHA 08/20/24 Complete 1000ml (Lactated 12:30 Hydromorphone 1 Mg PHA 08/20/24 Complete Inj (Dilaudid 1mg Inj 12:30 Arterial Blood Gas LAB 08/20/24 Complete Arterial + 12:30 Dka Prtcl:Restrict To CPOE 08/20/24 Transmitted Icu/Ccu 12:56 Dka Protcl:Dc All CPOE 08/20/24 Transmitted Meds/Feeding 12:56 Dka Protocol: Bmp Q4h CPOE 08/20/24 Transmitted Until 12:56 Basic Metabolic Panel LAB 08/20/24 Logged 16:56 Basic Metabolic Panel LAB 08/20/24 Logged 20:56 Basic Metabolic Panel LAB 08/21/24 Verified 00:56 Basic Metabolic Panel LAB 08/21/24 Verified 04:56 Basic Metabolic Panel LAB 08/21/24 Verified 08:56 Basic Metabolic Panel LAB 08/21/24 Verified 12:56 Basic Metabolic Panel LAB 08/21/24 Verified 16:56 Basic Metabolic Panel LAB 08/21/24 Verified 20:56 Basic Metabolic Panel LAB 08/22/24 Verified 00:56 Basic Metabolic Panel LAB 08/22/24 Verified 04:56 Basic Metabolic Panel LAB 08/22/24 Verified 08:56 Basic Metabolic Panel LAB 08/22/24 Verified 12:56 Basic Metabolic Panel LAB 08/22/24 Verified 16:56 Basic Metabolic Panel LAB 08/22/24 Verified 20:56 0.9%Nacl 1000ml (Ns PHA 08/20/24 In Process 1000ml) 13:00 D5w-1/2 Ns/20meq Kcl PHA 08/20/24 In Process (D5w-12 Ns/20meq K 13:00 Potassium Chloride PHA 08/20/24 In Process 20meq/10ml (Kcl 20meq 13:00 Magnesium 2gm Premix PHA 08/20/24 In Process 50ml (Magnesium 2gm 13:00 Insulin Regular, PHA 08/20/24 In Process Human 3ml (Humulin R 13:00 Dka Protocol: Bs, Vs, CPOE 08/20/24 Transmitted Neuro 12:56 Dextrose 5 %-0.45 % PHA 08/20/24 In Process Nacl (D5 1/2ns) 13:00 Current Medications Medications (Trade) Dose Ordered Sig/Maik Route PRN Reason Start Time Stop Time Status Last Admin Dose Admin Dextrose/Sodium Chloride 1,000 ml @ 0 mls/hr AD IV 08/20/24 13:00 09/19/24 12:59 Hydromorphone HCl (DiLAUDid 1MG INJ) 1 mg ONCE ONCE IVP 08/20/24 12:30 08/20/24 12:31 DC 08/20/24 13:15 Insulin Human Regular 100 unit/ Sodium Chloride 101 ml @ 0 mls/hr PROTOCOL IV 08/20/24 13:00 09/19/24 12:59 Lactated Ringer's 1,000 ml @ 0 mls/hr ONCE ONCE IV 08/20/24 12:30 08/20/24 12:31 DC 08/20/24 13:15 Magnesium Sulfate 50 ml @ 0 mls/hr PROTOCOL IV 08/20/24 13:00 09/19/24 12:59 Potassium Chloride 20 meq/ Sodium Chloride 1,010 ml @ 0 mls/hr PROTOCOL IV 08/20/24 13:00 09/19/24 12:59 Potassium Chloride/Dextrose/ Sod Cl 1,000 ml @ 0 mls/hr AD IV 08/20/24 13:00 09/19/24 12:59 Sodium Chloride 1,000 ml @ 200 mls/hr PROTOCOL IV 08/20/24 13:00 09/19/24 12:59 Vital Signs Date Time Temp Pulse Resp B/P (MAP) Pulse Ox O2 Delivery O2 Flow Rate FiO2 08/20/24 11:58 106 18 100/66 94 Room Air 0 DX & DISP Disposition: Inpatient Departure Impression: Primary Impression: DKA (diabetic ketoacidosis) Condition: Stable Referrals: NONE (PCP) VANIA KING DO Aug 20, 2024 12:19
--- NOTE | 2024-08-20 12:28 | EKG ---
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
[2024-08-20 12:32] LABS: ABG BASE EXCESS -25.1 mmol/L (-2.0-3.0); ABG HCO3 2.9 mmol/L (21.0-28.0); ABG OXYGEN SATURATION 97.9 % (94.0-98.0); ABG PCO2 < 15 mmHg (35-48); ABG PH 7.066 (7.350-7.450); CARBON MONOXIDE 0.3 % (0.5-1.5); HHb 2.1; PO2, ARTERIAL BG 165.8 mmHg (83.0-108.0); VENT MODE, BG 2LNC (ROOM AIR)
[2024-08-20 12:36] LABS: BASOPHILS # (AUTO) 0.07 K/uL (0.00-0.20); BASOPHILS % (AUTO) 0.7 % (0.0-5.0); EOSINOPHILS # (AUTO) 0.01 K/uL (0.00-0.70); EOSINOPHILS % (AUTO) 0.1 % (0.0-8.0); HEMATOCRIT 36.7 % (42-54); IMMATURE GRANULOCYTE ABSOLUTE 0.19 K/uL (0-1); LYMPHOCYTES # (AUTO) 1.7 K/uL (1.0-4.8); LYMPHOCYTES % (AUTO) 15.6 % (21.0-51.0); MEAN CORPUSCULAR HEMOGLOBIN 30.3 pg (27.0-33.0); MEAN CORPUSCULAR HGB CONC 31.3 g/dL (32.0-36.0); MEAN CORPUSCULAR VOLUME 96.6 fL (79-99); MONOCYTES # (AUTO) 1.2 K/uL (0.1-1.0); MONOCYTES % (AUTO) 11.2 % (3.0-13.0); NEUTROPHILS # (AUTO) 7.5 K/uL (1.8-7.7); NEUTROPHILS % (AUTO) 70.6 % (40.0-77.0); PLATELET COUNT (AUTO) 445 K/uL (130-400); RED CELL DISTRIBUTION WIDTH 13.7 % (11.0-15.5); WHITE BLOOD COUNT (AUTO) 10.6 K/uL (4.8-10.8)
--- NOTE | 2024-08-20 12:49 | HMCIMG ---
CHEST 1VW HISTORY: Shortness of breath COMPARISON: 08/15/2024 FINDINGS: A frontal projection of the chest was obtained . There is nodular density noted in the right upper lung. If needed, CT may be helpful.. No acute pulmonary infiltrates is seen. The heart is borderline enlarged. Prominent interstitial markings are seen. Degenerative changes are seen. No evidence of aortic calcification is seen. IMPRESSION: 1. There is nodular density noted in the right upper lung. If needed, CT may be helpful
[2024-08-20 12:54] LABS: ALBUMIN 3.2 g/dL (3.5-5.0); BILIRUBIN,TOTAL 0.5 mg/dL (0.2-1.0); POTASSIUM 5.6 mmol/L (3.5-5.1); TOTAL PROTEIN, SERUM 6.8 g/dL (6.0-8.3)
[2024-08-20] MEDS ORDERED: DEXTROSE 5 %-0.45 % NACL 1,000 ML IV SCH (13:00)
[2024-08-20] MEDS ORDERED: 0.9%NACL 1000ML 1,000 ML IV SCH (13:00)
[2024-08-20] MEDS ORDERED: PoTASSium chloRIDE 20MEQ/10ML 20 MEQ in 0.9%NACL 1000ML 1,000 ML IV SCH (13:00)
[2024-08-20] MEDS: hydroMORPHone 1 MG INJ IVP ONE (13:15)
[2024-08-20] MEDS: LACTATED RINGERS 1000ML 1,000 ML IV ONE (13:15)
[2024-08-20] MEDS ORDERED: ondanSETRON 4MG INJ IV PRN ×2 (14:30→15:30)
[2024-08-20] MEDS ORDERED: PHARMACY COMMUNICATION MISC PRN (14:30)
[2024-08-20] MEDS ORDERED: acetaMINOPHEN 500 MG TABLET PO PRN (14:30)
[2024-08-20] MEDS ORDERED: LORazepam 2 MG/ML 1 ML VIAL IVP PRN (14:30)
[2024-08-20] MEDS ORDERED: LACTATED RINGERS 1000ML IV SCH (14:30)
[2024-08-20] MEDS ORDERED: PROMETHAZINE HCL 25 MG TABLET PO PRN (14:30)
--- NOTE | 2024-08-20 14:43 | CONS ---
[facility] CONSULTATION NOTE Date Patient Seen: Aug 20, 2024 Time of Visit: 14:07 Supervising Physician: CAMRYN MELTON MD Reason for Consultation: CRITICAL CARE CONSULT Primary Care Physician: [NONE Outpatient Specialists: NONE Inpatient Consults: BIS- CRITICAL CARE PROBLEM LIST: Diabetic ketoacidosis with anion gap of 30 ZHANE on CKD stage 3 Uncontrolled type 2 diabetes mellitus with hyperglycemia Elevated ketones Mild hypoalbuminemia Thrombocytosis Chronic Normocytic anemia Acute on chronic thrombocytosis, POA Pseudo hyponatremia due to hyperglycemia POA Hyperkalemia, POA Severe dehydration, POA Medical noncompliance, POA History of cocaine, and marijuana abuse Active alcohol drinker, POA Homelessness, POA HPI: This is a 39-year-old male with a past medical history of homelessness, drug abuse, anxiety, depression, pancreatitis, type 2 diabetes mellitus and DKA who presented to the ED for evaluation of epigastric pain, vomiting and tachypnea. Patient reports he did not get his insulin after he was discharged from this hospital on previous hospitalization for DKA because the clinic [facility] was closed and was unable to get his insulin. He presented to the ED with heart rate of 106 respiratory rate of blood pressure 100/66 with O2 sat of 94% afebrile. On laboratory H&H is 11.5/36.7 with normal white count and normal neutrophil count. Platelet count is 445 K. on chemistries [id number] potassium of 5.6 chloride of 94 carbon dioxide of eight BUN of35 creatinine 2.0 consistent with a ZHANE on CKD stage 3. He tells 5.4 albumin 3.2 sensitive troponin seven. Glucose 492 mg/dL. On arterial blood gas pH of 7.06, pCO2 of less than 15, PO2 of 165 with a base excess of -25.1. I was consulted by ED physician Dr. Salazar for critical care management. Patient will have to be admitted to the ICU due to DKA on insulin drip per protocol. PAST MEDICAL HX: see above PAST SURGICAL HX: noncontributory SOCIAL HISTORY: No tobacco, ETOH, or illicit drug use Coded Allergies: No Known Drug Allergies (Unverified Allergy, Unknown, 08/01/23) REVIEW OF SYSTEMS: Const: [no fever, fatigue, or weight changes], yes to sun burn to face. Redness Eyes:[ no recent vision problems] ENT: [No congestion, ear pain, or sore throat] C/V: [no chest pain, palpitations or edema] Resp: [No cough, congestion, wheezing , or Shortness of breath] GI: Yes to epigastric abdominal pain, nausea, vomiting no constipation or diarrhea. : [No incontinence of or dyuria] M/S: [No joint or pain swelling] Skin: [No rash] Neuro: [no headache, focal numbness, or weakness, dizziness or seizures] Psych: No depression, yes to anxiety. Heme: [no abnormal bruising or bleeding] Lymph: [no swollen glands] PHYSICAL EXAM: GENERAL: alert, weak, awake oriented x 3, poor hygiene, unkempt, poor dental hygiene. HEENT: EOMI, Sclera non icteric, moist mucosa NECK: Supple, no JVD, trachea midline LUNGS: Clear breath sounds bilaterally. No wheezes tachypneic HEART: Regular rate and rhythm. Normal S1 and S2, without murmurs ABD: Abdomen soft, nontender. Bowel sounds present EXT: No clubbing cyanosis or edema NEURO: Alert and oriented to person, follows commands Vital Signs (last 8hr) Date Time Temp Pulse Resp B/P (MAP) Pulse Ox O2 Delivery O2 Flow Rate FiO2 08/20/24 11:58 106 18 100/66 94 Room Air 0 LABS: Hematology Labs: Test 08/20/24 12:24 Range/Units White Blood Count 10.6 4.8-10.8 K/uL Red Blood Count 3.80 L 4.50-6.20 MIL/uL Hemoglobin 11.5 L 14.0-18.0 g/dL Hematocrit 36.7 L 42-54 % Mean Corpuscular Volume 96.6 79-99 fL Mean Corpuscular Hemoglobin 30.3 27.0-33.0 pg Mean Corpuscular Hemoglobin Concent 31.3 L 32.0-36.0 g/dL Red Cell Distribution Width 13.7 11.0-15.5 % Platelet Count 445 H 130-400 K/uL Mean Platelet Volume 9.8 7.5-10.5 fL Immature Granulocyte % (Auto) 1.8 H 0-1 % Neutrophils (%) (Auto) 70.6 40.0-77.0 % Lymphocytes (%) (Auto) 15.6 L 21.0-51.0 % Monocytes (%) (Auto) 11.2 3.0-13.0 % Eosinophils (%) (Auto) 0.1 0.0-8.0 % Basophils (%) (Auto) 0.7 0.0-5.0 % Neutrophils # (Auto) 7.5 1.8-7.7 K/uL Lymphocytes # (Auto) 1.7 1.0-4.8 K/uL Monocytes # (Auto) 1.2 H 0.1-1.0 K/uL Eosinophils # (Auto) 0.01 0.00-0.70 K/uL Basophils # (Auto) 0.07 0.00-0.20 K/uL Absolute Immature Granulocyte (auto 0.19 0-1 K/uL Nucleated Red Blood Cells 0.0 0.0-0.19 % Chemistry Labs: Test 08/20/24 12:24 08/20/24 12:23 Range/Units Sodium Level 132 L 136-145 mmol/L Potassium Level 5.6 H 3.5-5.1 mmol/L Chloride Level 94 L 101-111 mmol/L Carbon Dioxide Level 8 *L 21-32 mmol/L Blood Urea Nitrogen 35 H 7-18 mg/dL Creatinine 2.0 H 0.5-1.3 mg/dL Glomerular Filtration Rate Calc 43 >90 mL/min Random Glucose 492 *H 70-105 mg/dL Whole Blood Ketones Quantitative 5.4 H 0.0-0.6 mmol/L Total Calcium 8.9 8.5-10.1 mg/dL Total Bilirubin 0.5 0.2-1.0 mg/dL Aspartate Amino Transf (AST/SGOT) 11 10-37 U/L Alanine Aminotransferase (ALT/SGPT) 20 12-78 U/L Alkaline Phosphatase 100 50-136 U/L Troponin I High Sensitivity 7 4-75 ng/L Total Protein 6.8 6.0-8.3 g/dL Albumin 3.2 L 3.5-5.0 g/dL Amylase Level 35 25-115 U/L Lipase 16 16-77 U/L Whole Blood Glucose 476 *H 70-110 MG/DL Bedside Glucose Comment Notified Nurse DIAGNOSTICS / RADIOLOGY RESULTS: [ ] IMAGING REPORT Signed PATIENT: DALLAS WADE MR#: [id number] : 1985 SEX: M AGE: 39 LOCATION: [facility] ORDER 57 STATUS: REG ER REPORT#: [id number] SERVICE 56 REASON: SOB ORDERING PHYSICIAN: VANIA SALAZAR DO PROCEDURE: CXR1VW - CHEST 1VW CHEST 1VW HISTORY: Shortness of breath COMPARISON: 08/15/2024 FINDINGS: A frontal projection of the chest was obtained . There is nodular density noted in the right upper lung. If needed, CT may be helpful.. No acute pulmonary infiltrates is seen. The heart is borderline enlarged. Prominent interstitial markings are seen. Degenerative changes are seen. No evidence of aortic calcification is seen. IMPRESSION: 1. There is nodular density noted in the right upper lung. If needed, CT may be helpful DICTATED BY: JAI CAMPOVERDE MD DATE: 08/20/241241 ELECTRONICALLY SIGNED BY: JAI CAMPOVERDE MD DATE: 08/20/241248 PLAN Admitted to ICU per hospitalist DKA protocol BMP q.4 hours per protocol Magnesium, potassium levels covered per protocol Q.1 hour or fingersticks Cardiac telemetry monitoring Venous blood gas in the morning Monitor serum sodium which tend to rise as hypoglycemia is corrected failure to observe may indicate the patient has been over-hydrated with free water Strict I&O Assess mental status Administered subcu basal insulin consider bicarb if patient's pH is less than 6.9 bicarb less than 5., cardiac or respiratory dysfunction, severely hyperkalemia, Rechecked PH Monitor for rebound DKA Start Lantus at HS NEURO: Minimize central acting medications as possible. Fall Precautions. Well lighted room through the day and minimize interruptions through the night to prevent acute delirium. PULMONARY: Supplemental 02 as needed Titrate Fio2 to keep Spo2 > or = 90% DuoNebs and CPT as needed IS hourly while awake for pulmonary hygiene Out of bed to chair as tolerated CARDIOVASCULAR: Follow hemodynamics. Titrate vasopressor to keep MAP >65 or systolic blood pressure >95mmHg Drips: Insulin LINES: PIV GI & NUTRITION: Continue nutritional support Aspirations precautions Prokinetic agents and laxatives as needed KIDNEYS & ELECTROLYTES: Strict monitoring of intake and output Daily weights Avoid nephrotoxic agents Monitor electrolytes and replace as needed Goal urine output of 30mL/hr or 0.5mL/kg/hr ENDOCRINE: Maintain blood glucose between 100-180 at all times. Insulin sliding scale for blood glucose management INFECTIOUS DISEASE: Trend temperature. [place]-culture if febrile. Micro: [ ] Antibiotics: None HEMATOLOGY & COAGULATION: Monitor H&H. Keep Hgb > 7 Transfuse 1 unit of PRBC for Hgb < 7 Transfuse 1 pack of platelets of platelets < 20, 000 Watch for any signs and symptoms of bleeding SKIN: Pressure ulcer prevention per facility protocol Rehab: PT/OT Prophylaxis: GI: Protonix DVT: Heparin Code Status: Full Resuscitation Disposition: ICU Other: Total patient care time exceeds 60 minutes excluding all procedures. Case was discussed and seen with my supervising physician. The above plan was formulated and agreed upon. JIM SCHNEIDER [facility] Aug 20, 2024 14:43
[2024-08-20] MEDS: INSULIN REGULAR, HUMAN 3ML 100 UNIT in 0.9%NACL 100ML 100 ML IV SCH (14:53)
[2024-08-20] MEDS ORDERED: GLUCAGON 1MG KIT 1 MG ML IM PRN (15:00)
[2024-08-20] MEDS ORDERED: DEXTROSE 50%-WATER 50 ML DISP.SYRIN IV PRN (15:00)
[2024-08-20 15:03] LABS: APPEARANCE,URINE CLEAR (CLEAR); BILIRUBIN,URINE NEGATIVE (NEGATIVE); COLOR,URINE LIGHT-YELLOW (YELLOW); GLUCOSE, URINE (UA) >=1000 mg/dL (NEGATIVE); KETONES,URINE 150 mg/dL (NEGATIVE); LEUKOCYTE ESTERASE ,URINE NEGATIVE Leu/uL (NEGATIVE); NITRATE,URINE NEGATIVE (NEGATIVE); OCCULT BLOOD,URINE NEGATIVE (NEGATIVE); PROTEIN,URINE 20 mg/dL (NEGATIVE); UROBILINOGEN,URINE 0.2 mg/dL (0.2-1.0)
[2024-08-20 15:04] LABS: ADD UA MICROSCOPIC YES
[2024-08-20 15:05] LABS: BACTERIA,URINE RARE /HPF (None Seen); HYALINE CASTS, URINE 0-1 /LPF (0-1 /LPF); MUCUS,URINE RARE LPF (None Seen); OTHER CASTS, URINE 2 /LPF (None Seen); WBC,URINE 0-1 /HPF (0-1)
--- NOTE | 2024-08-20 15:07 | HP ---
[facility] PHYS[facility] Date of Service: Aug 20, 2024 Time of Service: 14:58 PCP: Self referring Admitting: Dr Sanz Allergies: No Allergy Information Available, No Known Drug Allergies HISTORY OF PRESENT ILLNESS: [Patient is 39 years old male with a past medical history of homeless, anxiety, depression, pancreatitis, diabetes, hypertension, DKA, anemia, severe dehydra tion, cocaine and marijuana use, alcohol drinker, who came to emergency department for evaluation of epigastric pain, vomiting and tachypnea. Patient stated that he did not get his insulin after he was discharged from the hospital on August 16, 2024 for DKA because the [facility] and was unable to get his insulin. Most recent vital signs pulse 106 resp iration 18 blood pressure 100/66 patient is on room air satting 94%. Sodium 132 potassium 5.6 CO2 eight BUN 35 creatinine 2.0 GFR 43 glucose 476 ketones 5.4 bilirubin 0.5 AST 11 ALT 20 troponin negative x1 albumin 3.2 amylase 35 lipase 16. Chest x-ray showed nodular density right upper lung. ICU was consulted and was already placing the orders. Patient will be admitted under hospitalist care for further evaluation/recommendations. A.m. labs. Patient agrees with the further plan.] REVIEW OF SYSTEMS CONSTITUTIONAL: Denies fevers, chills, or night sweats. No unintentional weight loss reported. NEUROLOGICAL: Denies headache, amaurosis fugax, motor weakness, sensory deficit, vertigo/spinning sensation, gait abnormalities, or tremors. ENT: No hearing loss, otalgia, otorrhea, rhinitis, rhinorrhea, hoarseness, or sore throat. CARDIOVASCULAR: Denies any exertional angina, dyspnea on exertion, orthopnea, paroxysmal nocturnal dyspnea, palpitations, life-threatening arrhythmias, claudication. PULMONARY: Denies any shortness of breath, cough, phlegm/sputum, hemoptysis, pleuritic chest pain. SLEEP: Denies morning headaches, daytime somnolence or napping. Denies difficulty falling asleep, staying asleep, waking from sleep. Denies knowledge of snoring. GASTROINTESTINAL: Denies any type of dysphagia to either liquids or solids. Denies pyrosis, early satiety, , diarrhea, constipation, or changes in stool consistency or caliber. Denies coffee-ground emesis, hematemesis, hematochezia, or melanotic stools. Complains of abdominal pain, nausea, vomiting GENITOURINARY: Denies frequency, urgency, nocturia, hematuria or incontinence (Storage/Irritative symptoms.) Low urinary stream, straining to void, urinary intermittency or hesitancy, splitting of the voiding stream, terminal dribbling. ENDOCRINOLOGIC: Denies polyuria, polydipsia, polyphagia or heat/cold intolerances. HEMATOLOGIC: Denies thrombophilia/previous clots, or coagulopathy/bleeding disorders. ONCOLOGIC: Denies personal history of malignancy. DERMATOLOGIC: Denies rashes or pruritus. PSYCHIATRIC: Denies any suicidal or homicidal ideation. Denies hallucinations. PAST MEDICAL HISTORY: [ Anxiety, depression, pancreatitis, diabetes, hypertension, DKA , drug abuse, homeless, diabetes mellitus type 2] PAST SURGICAL HISTORY: [ Left ankle surgery] PAST SOCIAL HISTORY: [ Patient is homeless. Patient admits to drinking six packs of beer a day and smoke one pack of cigarette per week. Patient admits to using marijuana and cocaine ] FAMILY HISTORY: [ Noncontributory ] Coded Allergies: No Known Drug Allergies (Unverified Allergy, Unknown, 08/01/23) PHYSICAL EXAM GENERAL APPEARANCE: The patient is awake, alert, and oriented, in no acute cardiopulmonary distress. NEUROLOGICAL: Cranial nerves II-XII grossly intact. Motor is 5/5 in bilateral upper and lower extremities proximal to distal. No sensory deficits. HEENT: Face is symmetric. Pupils are equal and reactive. Extraocular movements are intact. NECK: Supple. No JVD. No thyromegaly. No submental, submandibular, pre- /postauricular, occipital or supraclavicular lymphadenopathy. CHEST: Normal chest expansion. No Telemetry. LUNGS: Absence of any rales, rhonchi or any wheezing. CARDIOVASCULAR: Regular. S1 and S2 normal. No appreciable rubs, murmurs or gallops. ABDOMEN: Soft, nontender, and nondistended. There is no rebound, voluntary guarding, or rigidity. : Deferred. No Santiago. EXTREMITIES: Non-edematous and not cyanotic. No clubbing. Good capillary refill. SKIN: No skin breakdown. Vital Sign (Last 24 Hours) 08/20/24 11:58 Pulse 106 Resp 18 B/P (MAP) 100/66 Pulse Ox 94 O2 Delivery Room Air O2 Flow Rate 0 LABS: Laboratory: Test 08/20/24 14:19 08/20/24 12:30 08/20/24 12:24 08/20/24 12:23 Range/Units Whole Blood Glucose 418 *H 70-110 MG/DL Blood Gas Specimen Type Arterial Arterial Blood pH 7.066 *L 7.350-7.450 Arterial Blood Partial Pressure CO2 < 15 *L 35-48 mmHg Arterial Blood Partial Pressure O2 165.8 H 83.0-108.0 mmHg Arterial Blood HCO3 2.9 L 21.0-28.0 mmol/L Arterial Blood Oxygen Saturation 97.9 94.0-98.0 % Arterial Blood Base Excess -25.1 L -2.0-3.0 mmol/L Hemoglobin (Blood Gas) 11.5 L 13.5-17.5 g/dL Sodium (Blood Gas) 133 L 136-145 MMOL/L Bedside Potassium (Blood Gas) 5.4 H 3.4-4.5 MMOL/L Bedside Chloride (Blood Gas) 97 L 98-107 MMOL/L Bedside Glucose (Blood Gas) 485 *H 65-95 MG/DL Bedside Ionized Calcium (Blood Gas) 1.32 1.15-1.33 MMOL/L Bedside Lactic Acid (Blood Gas) 1.65 H 0.36-0.75 MMOL/L Blood Gas Temperature 37.0 35.5-37.0 CELSIUS Blood Gas Flow-by 2.00 0.00-15.00 L/min Blood Gas Vent Mode 2LNC ROOM AIR FiO2 28.0 % Blood Gas Specimen Comment RR White Blood Count 10.6 4.8-10.8 K/uL Red Blood Count 3.80 L 4.50-6.20 MIL/uL Hemoglobin 11.5 L 14.0-18.0 g/dL Hematocrit 36.7 L 42-54 % Mean Corpuscular Volume 96.6 79-99 fL Mean Corpuscular Hemoglobin 30.3 27.0-33.0 pg Mean Corpuscular Hemoglobin Concent 31.3 L 32.0-36.0 g/dL Red Cell Distribution Width 13.7 11.0-15.5 % Platelet Count 445 H 130-400 K/uL Mean Platelet Volume 9.8 7.5-10.5 fL Immature Granulocyte % (Auto) 1.8 H 0-1 % Neutrophils (%) (Auto) 70.6 40.0-77.0 % Lymphocytes (%) (Auto) 15.6 L 21.0-51.0 % Monocytes (%) (Auto) 11.2 3.0-13.0 % Eosinophils (%) (Auto) 0.1 0.0-8.0 % Basophils (%) (Auto) 0.7 0.0-5.0 % Neutrophils # (Auto) 7.5 1.8-7.7 K/uL Lymphocytes # (Auto) 1.7 1.0-4.8 K/uL Monocytes # (Auto) 1.2 H 0.1-1.0 K/uL Eosinophils # (Auto) 0.01 0.00-0.70 K/uL Basophils # (Auto) 0.07 0.00-0.20 K/uL Absolute Immature Granulocyte (auto 0.19 0-1 K/uL Nucleated Red Blood Cells 0.0 0.0-0.19 % Sodium Level 132 L 136-145 mmol/L Potassium Level 5.6 H 3.5-5.1 mmol/L Chloride Level 94 L 101-111 mmol/L Carbon Dioxide Level 8 *L 21-32 mmol/L Blood Urea Nitrogen 35 H 7-18 mg/dL Creatinine 2.0 H 0.5-1.3 mg/dL Glomerular Filtration Rate Calc 43 >90 mL/min Random Glucose 492 *H 70-105 mg/dL Whole Blood Ketones Quantitative 5.4 H 0.0-0.6 mmol/L Total Calcium 8.9 8.5-10.1 mg/dL Total Bilirubin 0.5 0.2-1.0 mg/dL Aspartate Amino Transf (AST/SGOT) 11 10-37 U/L Alanine Aminotransferase (ALT/SGPT) 20 12-78 U/L Alkaline Phosphatase 100 50-136 U/L Troponin I High Sensitivity 7 4-75 ng/L Total Protein 6.8 6.0-8.3 g/dL Albumin 3.2 L 3.5-5.0 g/dL Amylase Level 35 25-115 U/L Lipase 16 16-77 U/L Bedside Glucose Comment Notified Nurse Current Medications Medications (Trade) Dose Ordered Sig/Maik Route PRN Reason Start Time Stop Time Status Last Admin Dose Admin Acetaminophen (TYLenol 500MG TAB) 500 mg Q6H PRN PO TEMP < 101.1 AND/OR HEADACHE 08/20/24 14:30 09/19/24 14:29 Dextrose/Sodium Chloride 1,000 ml @ 0 mls/hr AD IV 08/20/24 13:00 09/19/24 12:59 Enoxaparin Sodium (Lovenox) 30 mg DAILY SQ 08/21/24 09:00 09/20/24 08:59 Folic Acid (FOLic ACID 1 MG TABLET) 1 mg DAILY PO 08/21/24 09:00 08/23/24 09:01 Insulin Glargine (LANtus 100 UNITS/ML 10 ML VIAL) 20 units HS SQ 08/20/24 21:00 09/19/24 20:59 Insulin Human Regular 100 unit/ Sodium Chloride 101 ml @ 0 mls/hr PROTOCOL IV 08/20/24 13:00 09/19/24 12:59 08/20/24 14:53 5 MLS/HR Lactated Ringer's (Lactated Ringers 1000ml) 1,000 ml ONCE IV 08/20/24 14:30 08/20/24 14:29 DC Lorazepam (AtiVAN) 2 mg Q4H PRN IVP ALCOHOL WITHDRAWAL PROTOCOL 08/20/24 14:30 08/27/24 14:29 Lorazepam (AtiVAN) 4 mg Q2H PRN IVP ALCOHOL WITHDRAWAL PROTOCOL 08/20/24 14:30 08/27/24 14:29 Magnesium Sulfate 50 ml @ 0 mls/hr PROTOCOL IV 08/20/24 13:00 09/19/24 12:59 Multivitamins Therapeutic (Multivitamin Tablet) 1 tab DAILY PO 08/21/24 09:00 09/20/24 08:59 Ondansetron HCl (zoFRAN 4MG INJ) 4 mg Q4H PRN IV NAUSEA 08/20/24 14:30 09/19/24 14:29 Pantoprazole Sodium (PROTonix 40MG INJ) 40 mg DAILY IVP 08/21/24 09:00 09/20/24 08:59 Pharmacy Profile Note (Pharmacy Communication) 1 each PROTOCOL PRN MISC ETOH Withdrawal Score changes 08/20/24 14:30 08/27/24 14:29 Potassium Chloride 20 meq/ Sodium Chloride 1,010 ml @ 0 mls/hr PROTOCOL IV 08/20/24 13:00 09/19/24 12:59 Potassium Chloride/Dextrose/ Sod Cl 1,000 ml @ 0 mls/hr AD IV 08/20/24 13:00 09/19/24 12:59 Promethazine HCl (Phenergan) 25 mg Q6H PRN PO NAUSEA 08/20/24 14:30 09/19/24 14:29 Sodium Chloride 1,000 ml @ 200 mls/hr PROTOCOL IV 08/20/24 13:00 09/19/24 12:59 Thiamine HCl (Vitamin B-1) 200 mg DAILY IM 08/21/24 09:00 08/23/24 09:01 DIAGNOSTICS / RADIOLOGY: [ ] ASSESSMENT: [ Diabetic ketoacidosis with anion gap of 30 ZHANE on CKD stage 3 Uncontrolled type 2 diabetes mellitus with hyperglycemia Elevated ketones Mild hypoalbuminemia Thrombocytosis Chronic Normocytic anemia Acute on chronic thrombocytosis, POA Pseudo hyponatremia due to hyperglycemia POA Hyperkalemia, POA Severe dehydration, POA Medical noncompliance, POA History of cocaine, and marijuana abuse Active alcohol drinker, POA Homelessness, POA ] PLAN: [ Admit to: ICU Consults: Critical care Antibiotics: Zosyn Tests: CT chest DKA protocol, venous blood gas in the morning NEURO: Minimize central acting medications as possible. Fall Precautions. Well lighted room through the day and minimize interruptions through the night to prevent acute delirium. PULMONARY: Chest x-ray nodular density right upper lung CT chest pending Supplemental 02 as needed BiPAP as necessary, for respiratory distress Titrate Fio2 to keep Spo2 > or = 90% DuoNebs and CPT as needed IS hourly while awake for pulmonary hygiene Out of bed to chair as tolerated VAP Bundle Maintain aspiration precautions at all times CARDIOVASCULAR: Follow hemodynamics. Vital signs per facility protocol GI & NUTRITION: Continue nutritional support Aspirations precautions Prokinetic agents and laxatives as needed KIDNEYS & ELECTROLYTES: Strict monitoring of intake and output Daily weights Avoid nephrotoxic agents Monitor electrolytes and replace as needed Goal urine output of 30mL/hr or 0.5mL/kg/hr Medications to be dosed according to renal function. Avoid contrast if possible ENDOCRINE: Maintain blood glucose between 100-180 at all times. Insulin sliding scale for blood glucose management Hypoglycemia and hyperglycemia protocol in place INFECTIOUS DISEASE: Trend temperature, WBC and procalcitonin level Follow cultures, deescalate antibiotics as soon as possible. Panculture if new onset fever HEMATOLOGY & COAGULATION: Monitor H&H. Keep Hgb > 7 Transfuse 1 unit of PRBC for Hgb < 7 Transfuse 1 pack of platelets of platelets < 20, 000 Watch for any signs and symptoms of bleeding SKIN: Pressure ulcer prevention per facility protocol Specialty mattress as needed Treatment plan discussed with patient and family at the bedside Medications to be reconciled once obtained by patient and/or family and available to be reconciled in computer p.r.n. medication for pain nausea and vomiting Questions were answered We will continue to monitor the patient closely Game Master for disposition Rehab: PT/OT GI: PPI DVT: SCD's Code Status: Full Resuscitation Disposition: TBD Prognosis: Guarded] ADVANCED CARE PLANNING 1. Which of the following were discussed? Hospice Care - Yes / No Therapeutic options - Yes / No Advance Directives - Yes / No Other discussions - 2. Discussed with who? Patient 3. Voluntary nature of this service was explained to the patient? Yes / No 4. Amount of time spent - __ more than 35 minutes 5. Reviewed by Physician? (if this service was performed by NPP) Yes / No ATTESTATION BY PHYSICIAN I have seen and examined the patient. I reviewed the documentation, medical decision making, and treatment plan as noted by the mid-level provider above. I agree with the findings and plan of care. DADA Silverman MD [employer] Aug 20, 2024 15:07
[2024-08-20 15:14] LABS: ALCOHOL, BLOOD < 3 mg/dL (0-10)
[2024-08-20] MEDS ORDERED: ALBUTEROL 0.083% 2.5 MG/3 ML INH IH PRN (15:30)
[2024-08-20] MEDS ORDERED: hydrALAZine 20MG/ML VIAL IV PRN (15:30)
[2024-08-20] MEDS ORDERED: DiphenhydrAMINE HCL 50 MG/ML VIAL IV PRN (15:30)
[2024-08-20] MEDS ORDERED: ketOROlac 15MG/ML VIAL (15MG/ML) IV PRN (15:30)
[2024-08-20] MEDS ORDERED: MAG/ALUM/SIMETH 30 ML UDCUP PO PRN (15:30)
[2024-08-20] MEDS ORDERED: FAMOTIDINE 20MG VIAL IV PRN (15:30)
[2024-08-20] MEDS ORDERED: guaiFENesin-DM 200/20MG 10ML PO PRN (15:30)
[2024-08-20] MEDS ORDERED: ZOLPidem TARTrate 5 MG TAB PO PRN (15:30)
[2024-08-20] MEDS ORDERED: NITROGLYCERIN 0.4 MG SL TAB SL PRN (15:30)
[2024-08-20] MEDS ORDERED: LACTULOSE 20 GM/30 ML UDCUP PO PRN (15:30)
[2024-08-20] MEDS ORDERED: morPHINE 2 MG SYG IVP PRN (15:30)
[2024-08-20] MEDS ORDERED: acetaMINOPHEN 325 MG TAB PO PRN ×3 (15:30)
[2024-08-20 15:32] LABS: AMPHET/METH SCREEN,URINE NEGATIVE (NEGATIVE); BARBITURATE SCREEN, URINE NEGATIVE (NEGATIVE); BENZODIAZEPINES SCREEN,URINE NEGATIVE (NEGATIVE); CANNABINOID SCREEN,URINE POSITIVE (NEGATIVE); COCAINE SCREEN,URINE POSITIVE (NEGATIVE); OPIATE SCREEN,URINE NEGATIVE (NEGATIVE); PHENCYCLIDINE SCREEN,URINE NEGATIVE (NEGATIVE)
[2024-08-20] MEDS: LACTATED RINGERS 1000ML IV ONE ×2 (15:56)
[2024-08-20] MEDS ORDERED: INSULIN humuLIN R 100 UNIT/ML 3ML SQ SCH (16:30)
--- NOTE | 2024-08-20 17:00 | HMCIMG ---
CT CHEST W/O CONTRAST HISTORY: Nodular density of right upper lung COMPARISON: None TECHNIQUE: Multiple sequential axial images of the chest were obtained from the thoracic inlet through upper abdomen. Patient was not given contrast through intravenous route. FINDINGS: COPD changes are seen. There is no evidence of pulmonary nodule or parenchymal disease. No pleural effusion or pericardial effusion is seen. There is no evidence of pneumothorax. There are normal size mediastinal and hilar lymph nodes. The heart is not enlarged. Degenerative changes of the thoracolumbar spine are present. There is no evidence of adrenal nodule. IMPRESSION: 1. No evidence of pulmonary nodule or effusion is seen. COPD. CT was performed with one or more following dose reduction techniques: automated exposure control, adjustment of the mA and kv according to patient's size, or use of a iterative reconstruction technique.
[2024-08-20 17:09] LABS: CREATININE 1.7 mg/dL (0.5-1.3); POTASSIUM 4.6 mmol/L (3.5-5.1)
[2024-08-20 18:00] LABS: INFLUENZA TYPE A Negative For Type A (NEGATIVE); INFLUENZA TYPE B Negative For Type B (NEGATIVE)
[2024-08-20] MEDS: IpraTROPium/alBUTERol SULFATE 3 ML SOLUTION IH SCH (19:37)
[2024-08-20 20:44] LABS: CREATININE 1.5 mg/dL (0.5-1.3); POTASSIUM 4.1 mmol/L (3.5-5.1)
[2024-08-20] MEDS ORDERED: FAMOTIDINE 20MG VIAL IV SCH (21:00)
[2024-08-20] MEDS: ZOSYN 3.375GM+NS 50ML 50 ML IV SCH (21:39)
[2024-08-20] MEDS: LORazepam 2 MG/ML 1 ML VIAL IVP PRN (21:53)
[2024-08-20] MEDS: INSULIN GLARgine 100 UNITS/ML 10 ML VIAL SQ SCH (23:08)
[2024-08-21] VITALS (43 sets, daily range): BP systolic 91–157; BP diastolic 45–96; PULSE 79–96; RESP 5–23; TEMP 97.9–98.6; O2SAT 98–99
[2024-08-21 01:05] LABS: CREATININE 1.4 mg/dL (0.5-1.3); POTASSIUM 4.1 mmol/L (3.5-5.1)
[2024-08-21] MEDS: D5W-1/2 NS/20MEQ KCL 1,000 ML IV SCH (01:56)
[2024-08-21 04:37] LABS: BASOPHILS # (AUTO) 0.03 K/uL (0.00-0.20); BASOPHILS % (AUTO) 0.4 % (0.0-5.0); EOSINOPHILS # (AUTO) 0.05 K/uL (0.00-0.70); EOSINOPHILS % (AUTO) 0.7 % (0.0-8.0); HEMATOCRIT 27.7 % (42-54); IMMATURE GRANULOCYTE ABSOLUTE 0.06 K/uL (0-1); LYMPHOCYTES # (AUTO) 1.3 K/uL (1.0-4.8); LYMPHOCYTES % (AUTO) 18.2 % (21.0-51.0); MEAN CORPUSCULAR HEMOGLOBIN 30.3 pg (27.0-33.0); MEAN CORPUSCULAR HGB CONC 33.9 g/dL (32.0-36.0); MEAN CORPUSCULAR VOLUME 89.4 fL (79-99); MONOCYTES # (AUTO) 1.1 K/uL (0.1-1.0); MONOCYTES % (AUTO) 14.4 % (3.0-13.0); NEUTROPHILS # (AUTO) 4.8 K/uL (1.8-7.7); NEUTROPHILS % (AUTO) 65.5 % (40.0-77.0); PLATELET COUNT (AUTO) 399 K/uL (130-400); RED CELL DISTRIBUTION WIDTH 13.3 % (11.0-15.5); WHITE BLOOD COUNT (AUTO) 7.3 K/uL (4.8-10.8)
[2024-08-21 04:38] LABS: ALBUMIN 2.5 g/dL (3.5-5.0); BILIRUBIN,DIRECT 0.1 mg/dL (0.0-0.3); BILIRUBIN,TOTAL 0.3 mg/dL (0.2-1.0); CREATININE 1.3 mg/dL (0.5-1.3); MAGNESIUM 1.3 mg/dL (1.80-2.40); POTASSIUM 4.1 mmol/L (3.5-5.1); TOTAL PROTEIN, SERUM 5.5 g/dL (6.0-8.3)
[2024-08-21] MEDS: MAGNESIUM 2GM PREMIX 50ML 50 ML IV SCH (05:19)
[2024-08-21] MEDS: PANTOPrazole 40 MG/VIAL IVP SCH (07:44)
[2024-08-21] MEDS: FOLic ACID 1 MG TABLET PO SCH (07:45)
[2024-08-21] MEDS: THIAMINE HCL 100 MG/ML 2ML VIAL IM SCH (07:45)
[2024-08-21] MEDS: MULTIVITAMIN TABLET PO SCH (07:45)
[2024-08-21] MEDS: ENOXAPARIN SODIUM 30 MG/0.3 ML SQ SCH (07:46)
[2024-08-21 09:43] LABS: CREATININE 1.2 mg/dL (0.5-1.3); POTASSIUM 3.7 mmol/L (3.5-5.1)
--- NOTE | 2024-08-21 10:40 | NUR ---
DCP Patient states homeless and occasionally stays at a friend's house [address], [place] [address]. States remains independent and rides a bicycle for transportation. States able to complete ADL's on his own. Denies medical devices. Denies home health services, home care provider or dialysis. PCP - None. Pharmacy - [facility], patient states this is where he receives his diabetic medications. MD DIXON -- Patient was last admission 08/17/2024 for DX DKA, issue resolved after insulin drip. Patient states [facility] was closed and was not able to get his medications. 08/20/2024 admitted for DKA, tested positive for recreational drugs, cocaine and marijuana, and having withdraw symptoms. Patient states born in [place] but was raised in [place], [place]. Addendum: 08/21/24 at 1052 by MORAIMA NAVARRO RN CM Amended: Links added.
[2024-08-21] MEDS: INSULIN humuLIN R 100 UNIT/ML 3ML SQ SCH (11:17)
--- NOTE | 2024-08-21 11:45 | PN ---
[facility] PROGRESS NOTE Date of Service: Aug 21, 2024 Time of Service: 11:[address] Sanz SUBJECTIVE: [08/20/24 Patient is 39 years old male with a past medical history of homeless, anxiety, depression, pancreatitis, diabetes, hypertension, DKA, anemia, severe dehydration, cocaine and marijuana use, alcohol drinker, who came to emergency department for evaluation of epigastric pain, vomiting and tachypnea. Patient stated that he did not get his insulin after he was discharged from the hospital on August 16, 2024 for DKA because the [facility] and was unable to get his insulin. Most recent vital signs pulse 106 respiration 18 blood pressure 100/66 patient is on room air satting 94%. Sodium 132 potassium 5.6 CO2 eight BUN 35 creatinine 2.0 GFR 43 glucose 476 ketones 5.4 bilirubin 0.5 AST 11 ALT 20 troponin negative x1 albumin 3.2 amylase 35 lipase 16. Chest x-ray showed nodular density right upper lung. 08/21/24 patient was seen by nurse practitioner and physician during rounding in room 217. Patient's anion gap is closed and will be downgraded to PCCU floor. Patient's insulin drip will be discontinued we will place patient on Lantus 10 units daily. We will also discontinue Zosyn antibiotic and place patient on doxycycline IV. Kidney function has improved today compared to the previous day. Potassium today is 3.7 patient will continue on IV potassium protocol. We will continue to monitor patient in the meantime. A.m. labs ] REVIEW OF SYSTEMS CONSTITUTIONAL: Denies fevers, chills, or night sweats. No unintentional weight loss reported. NEUROLOGICAL: Denies headache, amaurosis fugax, motor weakness, sensory deficit, vertigo/spinning sensation, gait abnormalities, or tremors. ENT: No hearing loss, otalgia, otorrhea, rhinitis, rhinorrhea, hoarseness, or sore throat. CARDIOVASCULAR: Denies any exertional angina, dyspnea on exertion, orthopnea, paroxysmal nocturnal dyspnea, palpitations, life-threatening arrhythmias, claudication. PULMONARY: Denies any shortness of breath, cough, phlegm/sputum, hemoptysis, pleuritic chest pain. SLEEP: Denies morning headaches, daytime somnolence or napping. Denies difficulty falling asleep, staying asleep, waking from sleep. Denies knowledge of snoring. GASTROINTESTINAL: Denies any type of dysphagia to either liquids or solids. Denies pyrosis, early satiety, , diarrhea, constipation, or changes in stool consistency or caliber. Denies coffee-ground emesis, hematemesis, hematochezia, or melanotic stools. Denies any abdominal pain, nausea, vomiting GENITOURINARY: Denies frequency, urgency, nocturia, hematuria or incontinence (Storage/Irritative symptoms.) Low urinary stream, straining to void, urinary intermittency or hesitancy, splitting of the voiding stream, terminal dribbling. ENDOCRINOLOGIC: Denies polyuria, polydipsia, polyphagia or heat/cold intolerances. HEMATOLOGIC: Denies thrombophilia/previous clots, or coagulopathy/bleeding disorders. ONCOLOGIC: Denies personal history of malignancy. DERMATOLOGIC: Denies rashes or pruritus. PSYCHIATRIC: Denies any suicidal or homicidal ideation. Denies hallucinations. PHYSICAL EXAM GENERAL APPEARANCE: The patient is awake, alert, and oriented, in no acute cardiopulmonary distress. NEUROLOGICAL: Cranial nerves II-XII grossly intact. Motor is 5/5 in bilateral upper and lower extremities proximal to distal. No sensory deficits. HEENT: Face is symmetric. Pupils are equal and reactive. Extraocular movements are intact. NECK: Supple. No JVD. No thyromegaly. No submental, submandibular, pre- /postauricular, occipital or supraclavicular lymphadenopathy. CHEST: Normal chest expansion. No Telemetry. LUNGS: Absence of any rales, rhonchi or any wheezing. CARDIOVASCULAR: Regular. S1 and S2 normal. No appreciable rubs, murmurs or gallops. ABDOMEN: Soft, nontender, and nondistended. There is no rebound, voluntary guarding, or rigidity. : Deferred. No Santiago. EXTREMITIES: Non-edematous and not cyanotic. No clubbing. Good capillary refill. SKIN: No skin breakdown. Vital Signs (last 8hr) Date Time Temp Pulse Resp B/P (MAP) Pulse Ox O2 Delivery O2 Flow Rate FiO2 08/21/24 09:00 81 21 129/77 99 Room Air 08/21/24 08:00 97.9 81 16 120/62 99 Room Air 08/21/24 08:00 99 Room Air* 0 21 08/21/24 07:30 81 16 N/A Room Air 08/21/24 07:00 79 13 121/70 99 Room Air 08/21/24 06:30 84 12 116/67 99 Room Air 08/21/24 06:15 83 16 129/74 98 Room Air 08/21/24 06:00 85 19 122/70 99 Room Air 08/21/24 05:45 83 15 127/71 98 08/21/24 05:30 84 15 124/76 99 08/21/24 05:15 86 13 122/71 98 Room Air 08/21/24 05:00 82 15 100/45 96 08/21/24 04:45 83 14 93/79 99 Room Air 08/21/24 04:30 87 15 99/45 99 08/21/24 04:15 84 15 97/46 98 Room Air 08/21/24 04:09 99 Room Air* 0 08/21/24 04:00 86 15 110/48 98 08/21/24 03:45 87 14 114/66 98 Room Air LABS: Laboratory: Test 08/21/24 10:33 08/21/24 09:15 08/21/24 04:02 08/20/24 17:34 Range/Units Whole Blood Glucose 124 H 70-110 MG/DL Sodium Level 142 136-145 mmol/L Potassium Level 3.7 3.5-5.1 mmol/L Chloride Level 108 101-111 mmol/L Carbon Dioxide Level 26 21-32 mmol/L Blood Urea Nitrogen 19 H 7-18 mg/dL Creatinine 1.2 0.5-1.3 mg/dL Glomerular Filtration Rate Calc 79 >90 mL/min Random Glucose 139 H 70-105 mg/dL Total Calcium 8.1 L 8.5-10.1 mg/dL White Blood Count 7.3 # 4.8-10.8 K/uL Red Blood Count 3.10 L 4.50-6.20 MIL/uL Hemoglobin 9.4 L 14.0-18.0 g/dL Hematocrit 27.7 #L 42-54 % Mean Corpuscular Volume 89.4 79-99 fL Mean Corpuscular Hemoglobin 30.3 27.0-33.0 pg Mean Corpuscular Hemoglobin Concent 33.9 32.0-36.0 g/dL Red Cell Distribution Width 13.3 11.0-15.5 % Platelet Count 399 130-400 K/uL Mean Platelet Volume 9.7 7.5-10.5 fL Immature Granulocyte % (Auto) 0.8 0-1 % Neutrophils (%) (Auto) 65.5 40.0-77.0 % Lymphocytes (%) (Auto) 18.2 L 21.0-51.0 % Monocytes (%) (Auto) 14.4 H 3.0-13.0 % Eosinophils (%) (Auto) 0.7 0.0-8.0 % Basophils (%) (Auto) 0.4 0.0-5.0 % Neutrophils # (Auto) 4.8 1.8-7.7 K/uL Lymphocytes # (Auto) 1.3 1.0-4.8 K/uL Monocytes # (Auto) 1.1 H 0.1-1.0 K/uL Eosinophils # (Auto) 0.05 0.00-0.70 K/uL Basophils # (Auto) 0.03 0.00-0.20 K/uL Absolute Immature Granulocyte (auto 0.06 0-1 K/uL Nucleated Red Blood Cells 0.0 0.0-0.19 % Lactic Acid Level 0.8 0.8-2.5 mmol/L Magnesium Level 1.30 L 1.80-2.40 mg/dL Total Bilirubin 0.3 # 0.2-1.0 mg/dL Direct Bilirubin 0.1 0.0-0.3 mg/dL Aspartate Amino Transf (AST/SGOT) 9 L 10-37 U/L Alanine Aminotransferase (ALT/SGPT) 16 12-78 U/L Alkaline Phosphatase 72 # 50-136 U/L Ammonia 26 11-32 umol/L Total Creatine Kinase 44 # 21-232 U/L B-Type Natriuretic Peptide 87 0-100 pg/mL Total Protein 5.5 L 6.0-8.3 g/dL Albumin 2.5 #L 3.5-5.0 g/dL Procalcitonin 0.06 0.05-0.5 ng/mL Influenza Type A Antigen Negative For Type A NEGATIVE Influenza Type B Antigen Negative For Type B NEGATIVE Test 08/20/24 14:30 08/20/24 12:30 08/20/24 12:24 08/20/24 12:23 Range/Units Urine Color LIGHT-YELLOW YELLOW Urine Appearance CLEAR CLEAR Urine pH 5.0 5.0-8.0 Urine Specific [place] 1.018 1.001-1.031 Urine Protein 20 H NEGATIVE mg/dL Urine Glucose (UA) >=1000 H NEGATIVE mg/dL Urine Ketones 150 H NEGATIVE mg/dL Urine Occult Blood NEGATIVE NEGATIVE Urine Nitrate NEGATIVE NEGATIVE Urine Bilirubin NEGATIVE NEGATIVE mg/dL Urine Urobilinogen 0.2 0.2-1.0 mg/dL Urine Leukocyte Esterase NEGATIVE NEGATIVE Suzi/uL Urine RBC 2-5 H 0-1 /HPF Urine WBC 0-1 0-1 /HPF Urine Bacteria RARE None Seen /HPF Urine Hyaline Casts 0-1 0-1 /LPF /LPF Urine Other Casts 2 None Seen /LPF Urine Opiates Screen NEGATIVE NEGATIVE Urine Barbiturates Screen NEGATIVE NEGATIVE Urine Phencyclidine Screen NEGATIVE NEGATIVE Urine Amphetamines Screen NEGATIVE NEGATIVE Urine Benzodiazepines Screen NEGATIVE NEGATIVE Urine Cocaine Screen POSITIVE H NEGATIVE Urine Marijuana (THC) Screen POSITIVE H NEGATIVE Blood Gas Specimen Type Arterial Arterial Blood pH 7.066 *L 7.350-7.450 Arterial Blood Partial Pressure CO2 < 15 *L 35-48 mmHg Arterial Blood Partial Pressure O2 165.8 H 83.0-108.0 mmHg Arterial Blood HCO3 2.9 L 21.0-28.0 mmol/L Arterial Blood Oxygen Saturation 97.9 94.0-98.0 % Arterial Blood Base Excess -25.1 L -2.0-3.0 mmol/L Hemoglobin (Blood Gas) 11.5 L 13.5-17.5 g/dL Sodium (Blood Gas) 133 L 136-145 MMOL/L Bedside Potassium (Blood Gas) 5.4 H 3.4-4.5 MMOL/L Bedside Chloride (Blood Gas) 97 L 98-107 MMOL/L Bedside Glucose (Blood Gas) 485 *H 65-95 MG/DL Bedside Ionized Calcium (Blood Gas) 1.32 1.15-1.33 MMOL/L Bedside Lactic Acid (Blood Gas) 1.65 H 0.36-0.75 MMOL/L Blood Gas Temperature 37.0 35.5-37.0 CELSIUS Blood Gas Flow-by 2.00 0.00-15.00 L/min Blood Gas Vent Mode 2LNC ROOM AIR FiO2 28.0 % Blood Gas Specimen Comment RR D-Dimer Quantitative (PE/DVT) 1110 *H 0-500 ng/mL Whole Blood Ketones Quantitative 5.4 H 0.0-0.6 mmol/L Phosphorus Level 6.0 H 2.5-4.9 mg/dL Troponin I High Sensitivity 7 4-75 ng/L Amylase Level 35 25-115 U/L Lipase 16 16-77 U/L Serum Alcohol < 3 0-10 mg/dL Bedside Glucose Comment Notified Nurse Current Medications Medications (Trade) Dose Ordered Sig/Maik Route PRN Reason Start Time Stop Time Status Last Admin Dose Admin Acetaminophen (TYLenol 325MG TAB) 650 mg Q4H PRN PO MILD PAIN (1-3) 08/20/24 15:30 09/19/24 15:29 Acetaminophen (TYLenol 325MG TAB) 650 mg Q6H PRN PO MILD PAIN (1-3) 08/20/24 15:30 09/19/24 15:29 Acetaminophen (TYLenol 325MG TAB) 650 mg Q6H PRN PO TEMPERATURE GREATER THAN 101.5 08/20/24 15:30 09/19/24 15:29 Acetaminophen (TYLenol 500MG TAB) 500 mg Q6H PRN PO TEMP < 101.1 AND/OR HEADACHE 08/20/24 14:30 09/19/24 14:29 Al Hydroxide/Mg Hydroxide (MAALox PLUS 30ML) 30 ml Q6H PRN PO INDIGESTION 08/20/24 15:30 09/19/24 15:29 Albuterol (DUOneb) 1 udvial [id number] IH 08/20/24 18:00 09/19/24 17:59 08/20/24 19:37 1 UDVIAL Albuterol Sulfate (Proventil 0.083% 2.5mg/3ml) 2.5 mg [id number] PRN IH RESPIRATORY SYMPTOMS 08/20/24 15:30 09/19/24 15:29 Dextrose (D50w) 50 ml AD PRN IV HYPOGLYCEMIA PROTOCOL 08/20/24 15:00 09/19/24 14:59 Dextrose/Sodium Chloride 1,000 ml @ 0 mls/hr AD IV 08/20/24 13:00 08/21/24 11:11 DC Diphenhydramine HCl (BENAdryl INJ) 25 mg Q6H PRN IV SEVERE ITCHING/RASH 08/20/24 15:30 09/19/24 15:29 Doxycycline Hyclate 250 ml @ 125 mls/hr Q12H IV 08/21/24 11:30 08/31/24 11:29 Enoxaparin Sodium (Lovenox) 30 mg DAILY SQ 08/21/24 09:00 09/20/24 08:59 08/21/24 07:46 30 MG Famotidine (Pepcid 20mg Vial) 20 mg BID IV 08/20/24 21:00 08/20/24 15:16 DC Famotidine (Pepcid 20mg Vial) 20 mg BID PRN IV NAUSEA/VOMITING 08/20/24 15:30 09/19/24 15:29 Folic Acid (FOLic ACID 1 MG TABLET) 1 mg DAILY PO 08/21/24 09:00 08/23/24 09:01 08/21/24 07:45 1 MG Glucagon (Glucagon 1mg Kit) 1 mg AD PRN IM HYPOGLYCEMIA PROTOCOL 08/20/24 15:00 09/19/24 14:59 Guaifenesin/ Dextromethorphan (RobiTUSSin DM 200/20MG 10ML) 10 ml Q4H PRN PO COUGH 08/20/24 15:30 09/19/24 15:29 Hydralazine HCl (APRESOLine 20MG INJ) 10 mg Q6H PRN IV For:SBP above 160;DBP above 90 08/20/24 15:30 09/19/24 15:29 Insulin Glargine (LANtus 100 UNITS/ML 10 ML VIAL) 10 units AM SQ 08/22/24 09:00 08/21/24 11:17 DC Insulin Glargine (LANtus 100 UNITS/ML 10 ML VIAL) 20 units HS SQ 08/20/24 21:00 09/19/24 20:59 08/20/24 23:08 20 UNITS Insulin Human Regular (humuLIN R 100 UNIT/ML 3ML) INSULIN SLIDING SCAL... ACHS SQ 08/20/24 16:30 08/20/24 15:15 DC Insulin Human Regular (humuLIN R 100 UNIT/ML 3ML) INSULIN SLIDING SCAL... ACHS SQ 08/21/24 11:30 09/20/24 11:29 Insulin Human Regular 100 unit/ Sodium Chloride 101 ml @ 0 mls/hr PROTOCOL IV 08/20/24 13:00 08/21/24 11:11 DC 08/20/24 14:53 5 MLS/HR Ketorolac Tromethamine (toRADol) 15 mg Q8H PRN IV MODERATE PAIN (4-6) 08/20/24 15:30 08/25/24 15:29 Lactated Ringer's (Lactated Ringers 1000ml) 1,000 ml ONCE IV 08/20/24 14:30 08/20/24 14:29 DC Lactulose (Constulose 20gm/ 30ml Udcup) 20 gm BID PRN PO CONSTIPATION 08/20/24 15:30 09/19/24 15:29 Lorazepam (AtiVAN) 2 mg Q4H PRN IVP ALCOHOL WITHDRAWAL PROTOCOL 08/20/24 14:30 08/27/24 14:29 08/20/24 21:53 2 MG Lorazepam (AtiVAN) 4 mg Q2H PRN IVP ALCOHOL WITHDRAWAL PROTOCOL 08/20/24 14:30 08/27/24 14:29 Magnesium Sulfate 50 ml @ 0 mls/hr PROTOCOL IV 08/20/24 13:00 08/21/24 11:11 DC 08/21/24 05:19 25 MLS/HR Magnesium Sulfate 50 ml @ 0 mls/hr PROTOCOL PRN IV Other 08/20/24 15:00 09/19/24 14:59 Morphine Sulfate (morPHINE 2MG SYG) 1 mg Q4H PRN IVP SEVERE PAIN (7-10) 08/20/24 15:30 08/27/24 15:29 Multivitamins Therapeutic (Multivitamin Tablet) 1 tab DAILY PO 08/21/24 09:00 09/20/24 08:59 08/21/24 07:45 1 TAB Nitroglycerin (Nitrostat) 0.4 mg PROTOCOL PRN SL CHEST PAIN 08/20/24 15:30 09/19/24 15:29 Ondansetron HCl (zoFRAN 4MG INJ) 4 mg Q4H PRN IV NAUSEA 08/20/24 14:30 09/19/24 14:29 Ondansetron HCl (zoFRAN 4MG INJ) 4 mg Q6H PRN IV NAUSEA/VOMITING 08/20/24 15:30 09/19/24 15:29 Pantoprazole Sodium (PROTonix 40MG INJ) 40 mg DAILY IVP 08/21/24 09:00 09/20/24 08:59 08/21/24 07:44 40 MG Pharmacy Profile Note (Pharmacy Communication) 1 each PROTOCOL PRN MISC ETOH Withdrawal Score changes 08/20/24 14:30 08/27/24 14:29 Piperacillin Sod/ Tazobactam Sod 50 ml @ 12.5 mls/hr ZOSY8 IV 08/20/24 21:00 08/21/24 11:11 DC 08/21/24 05:20 12.5 MLS/HR Potassium Chloride 20 meq/ Sodium Chloride 1,010 ml @ 0 mls/hr PROTOCOL IV 08/20/24 13:00 08/21/24 11:11 DC Potassium Chloride/Dextrose/ Sod Cl 1,000 ml @ 0 mls/hr AD IV 08/20/24 13:00 08/21/24 11:11 DC 08/21/24 09:02 150 MLS/HR Promethazine HCl (Phenergan) 25 mg Q6H PRN PO NAUSEA 08/20/24 14:30 09/19/24 14:29 Sodium Chloride 1,000 ml @ 200 mls/hr PROTOCOL IV 08/20/24 13:00 08/21/24 11:11 DC Thiamine HCl (Vitamin B-1) 200 mg DAILY IM 08/21/24 09:00 08/23/24 09:01 08/21/24 07:45 200 MG Zolpidem Tartrate (AmbIEN) 5 mg HS PRN PO INSOMNIA 08/20/24 15:30 09/19/24 15:29 DIAGNOSTICS / RADIOLOGY: [ ] ASSESSMENT: [ Diabetic ketoacidosis with anion gap of 30 ZHANE on CKD stage 3 Uncontrolled type 2 diabetes mellitus with hyperglycemia Elevated ketones Mild hypoalbuminemia Thrombocytosis Chronic Normocytic anemia Acute on chronic thrombocytosis, POA Pseudo hyponatremia due to hyperglycemia POA Hyperkalemia, POA Severe dehydration, POA Medical noncompliance, POA History of cocaine, and marijuana abuse Active alcohol drinker, POA Homelessness, POA ] PLAN: [ Admit to: ICU Consults: Critical care at this moment but patient will be downgraded to PCCU Antibiotics: Zosyn discontinued patient will be placed on doxycycline IV Tests: None at this moment DKA protocol discontinued NEURO: Minimize central acting medications as possible. Fall Precautions. Well lighted room through the day and minimize interruptions through the night to prevent acute delirium. PULMONARY: Chest x-ray nodular density right upper lung CT chest showed COPD Supplemental 02 as needed BiPAP as necessary, for respiratory distress Titrate Fio2 to keep Spo2 > or = 90% DuoNebs and CPT as needed IS hourly while awake for pulmonary hygiene Out of bed to chair as tolerated VAP Bundle Maintain aspiration precautions at all times CARDIOVASCULAR: Follow hemodynamics. Vital signs per facility protocol GI & NUTRITION: Continue nutritional support Aspirations precautions Prokinetic agents and laxatives as needed KIDNEYS & ELECTROLYTES: Strict monitoring of intake and output Daily weights Avoid nephrotoxic agents Monitor electrolytes and replace as needed Goal urine output of 30mL/hr or 0.5mL/kg/hr Medications to be dosed according to renal function. Avoid contrast if possible ENDOCRINE: Maintain blood glucose between 100-180 at all times. Insulin sliding scale for blood glucose management Hypoglycemia and hyperglycemia protocol in place INFECTIOUS DISEASE: Trend temperature, WBC and procalcitonin level Follow cultures, deescalate antibiotics as soon as possible. Panculture if new onset fever HEMATOLOGY & COAGULATION: Monitor H&H. Keep Hgb > 7 Transfuse 1 unit of PRBC for Hgb < 7 Transfuse 1 pack of platelets of platelets < 20, 000 Watch for any signs and symptoms of bleeding SKIN: Pressure ulcer prevention per facility protocol Specialty mattress as needed Treatment plan discussed with patient and family at the bedside Medications to be reconciled once obtained by patient and/or family and available to be reconciled in computer p.r.n. medication for pain nausea and vomiting Questions were answered We will continue to monitor the patient closely Angiography Technologist for disposition Rehab: PT/OT GI: PPI DVT: SCD's Code Status: Full Resuscitation Disposition: Once medically cleared to be discharged home Prognosis: Guarded] ATTESTATION BY PHYSICIAN I have seen and examined the patient. I reviewed the documentation, medical decision making, and treatment plan as noted by the mid-level provider above. I agree with the findings and plan of care. DADA Silverman i, MD CASH CLERK Aug 21, 2024 11:45
[2024-08-21] MEDS: DOXYCYCLINE 100MG+NS 250ML 250 ML IV SCH (11:51)
--- NOTE | 2024-08-21 11:51 | PN ---
[facility] PROGRESS NOTE Date Patient Seen: Aug 21, 2024 Time of Visit: 11:50 Supervising Physician: Dr. Hayes Primary Care Physician: [NONE Outpatient Specialists: NONE Inpatient Consults: BIS- CRITICAL CARE PROBLEM LIST: Diabetic ketoacidosis with anion gap of 30 on admission ZHANE on CKD stage 3 Uncontrolled type 2 diabetes mellitus with hyperglycemia Elevated ketones Mild hypoalbuminemia Thrombocytosis Chronic Normocytic anemia Acute on chronic thrombocytosis, POA Pseudo hyponatremia due to hyperglycemia POA Hyperkalemia, POA Severe dehydration, POA Medical noncompliance, POA History of cocaine, and marijuana abuse Active alcohol drinker, POA Homelessness, POA INTERVAL HISTORY: 08/22/2023: At the time of my evaluation the patient was lying in bed. He reports feeling much better today. The patient is on room air with optimal oxygen saturation. On the monitor he is hemodynamically stable. Chemistry panel showed a sodium of 142, potassium 3.7, chloride 108, CO2 of 26, BUN 19, creatinine of 1.2, blood glucose of 139. Calculated agap of 8, cumulative balance of +1209. CBC showed WBC of 7.3, H&H 9.4/27.7 and a platelet count of 399. No other complaint. REVIEW OF SYSTEMS: Const: [no fever, fatigue, or weight changes], yes to sun burn to face. Redness Eyes:[ no recent vision problems] ENT: [No congestion, ear pain, or sore throat] C/V: [no chest pain, palpitations or edema] Resp: [No cough, congestion, wheezing , or Shortness of breath] GI: Yes to epigastric abdominal pain, nausea, vomiting no constipation or diarrhea. : [No incontinence of or dyuria] M/S: [No joint or pain swelling] Skin: [No rash] Neuro: [no headache, focal numbness, or weakness, dizziness or seizures] Psych: No depression, yes to anxiety. Heme: [no abnormal bruising or bleeding] Lymph: [no swollen glands] PHYSICAL EXAM: GENERAL: alert, weak, awake oriented x 3, poor hygiene, unkempt, poor dental hygiene. HEENT: EOMI, Sclera non icteric, moist mucosa NECK: Supple, no JVD, trachea midline LUNGS: Clear breath sounds bilaterally. No wheezes tachypneic HEART: Regular rate and rhythm. Normal S1 and S2, without murmurs ABD: Abdomen soft, nontender. Bowel sounds present EXT: No clubbing cyanosis or edema NEURO: Alert and oriented to person, follows commands Vital Signs (last 8hr) Date Time Temp Pulse Resp B/P (MAP) Pulse Ox O2 Delivery O2 Flow Rate FiO2 08/21/24 09:00 81 21 129/77 99 Room Air 08/21/24 08:00 97.9 81 16 120/62 99 Room Air 08/21/24 08:00 99 Room Air* 0 08/21/24 07:30 81 16 N/A Room Air 08/21/24 07:00 79 13 121/70 99 Room Air 08/21/24 06:30 84 12 116/67 99 Room Air 08/21/24 06:15 83 16 129/74 98 Room Air 08/21/24 06:00 85 19 122/70 99 Room Air 08/21/24 05:45 83 15 127/71 98 08/21/24 05:30 84 15 124/76 99 08/21/24 05:15 86 13 122/71 98 Room Air 08/21/24 05:00 82 15 100/45 96 08/21/24 04:45 83 14 93/79 99 Room Air 08/21/24 04:30 87 15 99/45 99 08/21/24 04:15 84 15 97/46 98 Room Air 08/21/24 04:09 99 Room Air* 0 08/21/24 04:00 86 15 110/48 98 LABS: Hematology Labs: Test 08/21/24 04:02 Range/Units White Blood Count 7.3 # 4.8-10.8 K/uL Red Blood Count 3.10 L 4.50-6.20 MIL/uL Hemoglobin 9.4 L 14.0-18.0 g/dL Hematocrit 27.7 #L 42-54 % Mean Corpuscular Volume 89.4 79-99 fL Mean Corpuscular Hemoglobin 30.3 27.0-33.0 pg Mean Corpuscular Hemoglobin Concent 33.9 32.0-36.0 g/dL Red Cell Distribution Width 13.3 11.0-15.5 % Platelet Count 399 130-400 K/uL Mean Platelet Volume 9.7 7.5-10.5 fL Immature Granulocyte % (Auto) 0.8 0-1 % Neutrophils (%) (Auto) 65.5 40.0-77.0 % Lymphocytes (%) (Auto) 18.2 L 21.0-51.0 % Monocytes (%) (Auto) 14.4 H 3.0-13.0 % Eosinophils (%) (Auto) 0.7 0.0-8.0 % Basophils (%) (Auto) 0.4 0.0-5.0 % Neutrophils # (Auto) 4.8 1.8-7.7 K/uL Lymphocytes # (Auto) 1.3 1.0-4.8 K/uL Monocytes # (Auto) 1.1 H 0.1-1.0 K/uL Eosinophils # (Auto) 0.05 0.00-0.70 K/uL Basophils # (Auto) 0.03 0.00-0.20 K/uL Absolute Immature Granulocyte (auto 0.06 0-1 K/uL Nucleated Red Blood Cells 0.0 0.0-0.19 % Chemistry Labs: Test 08/21/24 10:33 08/21/24 09:15 08/21/24 04:02 08/20/24 12:24 Range/Units Whole Blood Glucose 124 H 70-110 MG/DL Sodium Level 142 136-145 mmol/L Potassium Level 3.7 3.5-5.1 mmol/L Chloride Level 108 101-111 mmol/L Carbon Dioxide Level 26 21-32 mmol/L Blood Urea Nitrogen 19 H 7-18 mg/dL Creatinine 1.2 0.5-1.3 mg/dL Glomerular Filtration Rate Calc 79 >90 mL/min Random Glucose 139 H 70-105 mg/dL Total Calcium 8.1 L 8.5-10.1 mg/dL Lactic Acid Level 0.8 0.8-2.5 mmol/L Magnesium Level 1.30 L 1.80-2.40 mg/dL Total Bilirubin 0.3 # 0.2-1.0 mg/dL Direct Bilirubin 0.1 0.0-0.3 mg/dL Aspartate Amino Transf (AST/SGOT) 9 L 10-37 U/L Alanine Aminotransferase (ALT/SGPT) 16 12-78 U/L Alkaline Phosphatase 72 # 50-136 U/L Ammonia 26 11-32 umol/L Total Creatine Kinase 44 # 21-232 U/L B-Type Natriuretic Peptide 87 0-100 pg/mL Total Protein 5.5 L 6.0-8.3 g/dL Albumin 2.5 #L 3.5-5.0 g/dL Procalcitonin 0.06 0.05-0.5 ng/mL Whole Blood Ketones Quantitative 5.4 H 0.0-0.6 mmol/L Phosphorus Level 6.0 H 2.5-4.9 mg/dL Troponin I High Sensitivity 7 4-75 ng/L Amylase Level 35 25-115 U/L Lipase 16 16-77 U/L Test 08/20/24 12:23 Range/Units Bedside Glucose Comment Notified Nurse Coagulation Labs: Test 08/20/24 12:24 Range/Units D-Dimer Quantitative (PE/DVT) 1110 *H 0-500 ng/mL DIAGNOSTICS / RADIOLOGY RESULTS: [ ] PLAN Admitted to ICU per hospitalist DKA protocol BMP q.4 hours per protocol Magnesium, potassium levels covered per protocol Q.1 hour or fingersticks Cardiac telemetry monitoring Venous blood gas in the morning Monitor serum sodium which tend to rise as hypoglycemia is corrected failure to observe may indicate the patient has been over-hydrated with free water Strict I&O Assess mental status Administered subcu basal insulin consider bicarb if patient's pH is less than 6.9 bicarb less than 5., cardiac or respiratory dysfunction, severely hyperkalemia, Rechecked PH Monitor for rebound DKA Start Lantus at HS 08/22/2023: For now, going to continue current management for the patient. Considering the patient gap has closed and his blood glucose is better controlled, the patient can be transferred out of the ICU. 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 We will repeat surveillance labs in the morning. We will sign off the case. Appreciate the opportunity given to participate in patient care and we will remain available for any further needs. NEURO: Minimize central acting medications as possible. Fall Precautions. Well lighted room through the day and minimize interruptions through the night to prevent acute delirium. PULMONARY: Supplemental 02 as needed Titrate Fio2 to keep Spo2 > or = 90% DuoNebs and CPT as needed IS hourly while awake for pulmonary hygiene Out of bed to chair as tolerated CARDIOVASCULAR: Follow hemodynamics. Titrate vasopressor to keep MAP >65 or systolic blood pressure >95mmHg Drips: Insulin LINES: PIV GI & NUTRITION: Continue nutritional support Aspirations precautions Prokinetic agents and laxatives as needed KIDNEYS & ELECTROLYTES: Strict monitoring of intake and output Daily weights Avoid nephrotoxic agents Monitor electrolytes and replace as needed Goal urine output of 30mL/hr or 0.5mL/kg/hr ENDOCRINE: Maintain blood glucose between 100-180 at all times. Insulin sliding scale for blood glucose management INFECTIOUS DISEASE: Trend temperature. [place]-culture if febrile. Micro: [ ] Antibiotics: None HEMATOLOGY & COAGULATION: Monitor H&H. Keep Hgb > 7 Transfuse 1 unit of PRBC for Hgb < 7 Transfuse 1 pack of platelets of platelets < 20, 000 Watch for any signs and symptoms of bleeding SKIN: Pressure ulcer prevention per facility protocol Rehab: PT/OT Prophylaxis: GI: Protonix DVT: Heparin Code Status: Full Resuscitation Disposition: PCCCU Other: Total patient care time exceeds 60 minutes excluding all procedures. Case was discussed and seen with my supervising physician. The above plan was formulated and agreed upon. VAN ROOT NP Aug 21, 2024 11:51
[2024-08-21] MEDS: INSULIN GLARgine 100 UNITS/ML 10 ML VIAL SQ ONE (11:52)
--- NOTE | 2024-08-21 17:25 | NUR ---
PT eval held by nurse, PT to follow as patient tolerates
[2024-08-22] VITALS (14 sets, daily range): BP systolic 115–161; BP diastolic 79–98; PULSE 80–92; RESP 16–103; TEMP 97.8–98.3; O2SAT 97–98
[2024-08-22 04:38] LABS: BASOPHILS # (AUTO) 0.01 K/uL (0.00-0.20); BASOPHILS % (AUTO) 0.2 % (0.0-5.0); EOSINOPHILS # (AUTO) 0.12 K/uL (0.00-0.70); EOSINOPHILS % (AUTO) 2.4 % (0.0-8.0); HEMATOCRIT 29.1 % (42-54); IMMATURE GRANULOCYTE ABSOLUTE 0.04 K/uL (0-1); LYMPHOCYTES # (AUTO) 1.4 K/uL (1.0-4.8); LYMPHOCYTES % (AUTO) 28.2 % (21.0-51.0); MEAN CORPUSCULAR HEMOGLOBIN 30.2 pg (27.0-33.0); MEAN CORPUSCULAR HGB CONC 34.4 g/dL (32.0-36.0); MEAN CORPUSCULAR VOLUME 87.9 fL (79-99); MONOCYTES # (AUTO) 1.1 K/uL (0.1-1.0); MONOCYTES % (AUTO) 22.1 % (3.0-13.0); NEUTROPHILS # (AUTO) 2.3 K/uL (1.8-7.7); NEUTROPHILS % (AUTO) 46.3 % (40.0-77.0); PLATELET COUNT (AUTO) 307 K/uL (130-400); RED BLOOD CELL COUNT(AUTO) 3.31 MIL/uL (4.50-6.20); RED CELL DISTRIBUTION WIDTH 13.6 % (11.0-15.5)
[2024-08-22 04:50] LABS: ALBUMIN 2.4 g/dL (3.5-5.0); BILIRUBIN,TOTAL 0.1 mg/dL (0.2-1.0); CREATININE 0.7 mg/dL (0.5-1.3); MAGNESIUM 1.8 mg/dL (1.80-2.40); POTASSIUM 3.4 mmol/L (3.5-5.1); TOTAL PROTEIN, SERUM 5.5 g/dL (6.0-8.3)
[2024-08-22] MEDS: MAGNESIUM 2GM PREMIX 50ML 50 ML IV PRN (06:41)
[2024-08-22] MEDS: PoTASSium chloRIDE 20MEQ ER 20 MEQ ERTAB PO ONE ×2 (06:42→12:19)
[2024-08-22] MEDS: INSULIN GLARgine 100 UNITS/ML 10 ML VIAL SQ SCH (08:53)
[2024-08-22] MEDS ORDERED: INSULIN GLARgine 100 UNITS/ML 10 ML VIAL SQ SCH (09:00)
[2024-08-22] MEDS: PoTASSium chloRIDE 20MEQ ER 20 MEQ ERTAB PO PRN (11:53)
[2024-08-22] MEDS ORDERED: PoTASSium chl 10% ELIXIR 20MEQ 20 MEQ/15 ML UDCUP PO PRN (12:00)
[2024-08-22] MEDS: PoTASSium chloRIDE 20MEQ ER 20 MEQ ERTAB PO STA (12:18)
--- NOTE | 2024-08-22 13:50 | NUR ---
Spoke with pt regarding medications and goes to [facility] to fill his medications but they are closed and is unable to fill his prescription, asked if he has medicaid and stated he does, provided pt with community resource packet. Asked if he has family support yelled "I don't have any family".
--- NOTE | 2024-08-22 14:34 | NUR ---
Attempted PT eval, patient very aggravated after social welfare research worker visit. Vitals stable, patient with head covered by blanket. Pt reports he does not have insulin and " they can help me here they just dont want to" also " I am going to get sick again, Im going to ". Pt refuses to get out of bed reports " i need to rest as much as possible before i leave". Pt reports that he can walk in room and go to RR. Pt denies needs for DME. Pt very agitated with renal social worker and insurance related issues pending DC. PT to follow if patient allow.
--- NOTE | 2024-08-22 15:07 | DS ---
Discharge Summary Hospital Course Summary: DATE OF ADMISSION:[08/20/2024] DATE OF DISCHARGE:[08/22/2024] DISPOSITION:[Home] CONDITION:[Medically stable] CONSULTANTS:[ICU] FOLLOW UP APPOINTMENTS:[PCP 2 to 3 days. Patient to follow up at [facility] ER on 08/23/24 and 08/24/2024 to receive 10 units of Lantus by nursing staff in a.m.] PROCEDURES:[None] IMAGING: report attached to summary MICROBIOLOGY: report attached to summary ACTIVITY:[Independent] HOME MEDICATIONS: see med [facility] NEW MEDICATIONS:[Doxycycline 100 mg POA b.i.d. x7 days, Lantus 10 units subQ daily, thimine, multivitamin, Protonix, prescription written by DIRECTIONAL DRILLER and given to patient] EMERGENCY INSTRUCTIONS: The patient was instructed to present to the nearest Emergency departmentr or call 911 once their symptoms will return or worsen Pecan Gatherer(s): Patient is 39 years old male with a past medical history of homeless, anxiety, depression, pancreatitis, diabetes, hypertension, DKA, anemia, severe dehydration, cocaine and marijuana use, alcohol drinker, who came to emergency department for evaluation of epigastric pain, vomiting and tachypnea. Patient stated that he did not get his insulin after he was discharged from the hospital on August 16, 2024 for DKA because the [facility] were closed and was unable to get his insulin. Throughout the hospitalization patient was admitted to ICU for DKA. Anion gap was closed and patient was downgraded to the medical-surgical floor. Patient is cleared to be discharged home today unfortunately the clinic where patient will be able to get his medication for free that is close today and tomorrow. It will be reopened on 08/24/2024 from 06/21 4:00 p.m. here in [place]. Prescription was written for all the necessary medications like Lantus, doxycycline, multivitamin, thiamine, Protonix. Nurse practitioner was also able to talk to the director of ICU unit and Dr. Pace in ER regarding patient to come back to [facility] in ER on 08/23/2024 and 08/24/2024 to receive 10 units of Lantus and then discharge patient home. Prescription for above plan was given to the patient. Patient understands that he needs to come back to ER two days consecutive to receive La ntus subQ. Patient is cleared to be discharged home follow up with PCP in 2 to 3 days. Procedure(s): REVIEW OF SYSTEMS CONSTITUTIONAL: Denies fevers, chills, or night sweats. No unintentional weight loss reported. NEUROLOGICAL: Denies headache, amaurosis fugax, motor weakness, sensory deficit, vertigo/spinning sensation, gait abnormalities, or tremors. ENT: No hearing loss, otalgia, otorrhea, rhinitis, rhinorrhea, hoarseness, or sore throat. CARDIOVASCULAR: Denies any exertional angina, dyspnea on exertion, orthopnea, paroxysmal nocturnal dyspnea, palpitations, life-threatening arrhythmias, claudication. PULMONARY: Denies any shortness of breath, cough, phlegm/sputum, hemoptysis, pleuritic chest pain. SLEEP: Denies morning headaches, daytime somnolence or napping. Denies difficulty falling asleep, staying asleep, waking from sleep. Denies knowledge of snoring. GASTROINTESTINAL: Denies any type of dysphagia to either liquids or solids. Denies pyrosis, early satiety, , diarrhea, constipation, or changes in stool consistency or caliber. Denies coffee-ground emesis, hematemesis, hematochezia, or melanotic stools. Denies any abdominal pain, nausea, vomiting GENITOURINARY: Denies frequency, urgency, nocturia, hematuria or incontinence (Storage/Irritative symptoms.) Low urinary stream, straining to void, urinary intermittency or hesitancy, splitting of the voiding stream, terminal dribbling. ENDOCRINOLOGIC: Denies polyuria, polydipsia, polyphagia or heat/cold intolerances. HEMATOLOGIC: Denies thrombophilia/previous clots, or coagulopathy/bleeding disorders. ONCOLOGIC: Denies personal history of malignancy. DERMATOLOGIC: Denies rashes or pruritus. PSYCHIATRIC: Denies any suicidal or homicidal ideation. Denies hallucinations. Assessment/Plan: ASSESSMENT: [ Diabetic ketoacidosis with anion gap of 30 ZHANE on CKD stage 3 Uncontrolled type 2 diabetes mellitus with hyperglycemia Elevated ketones Mild hypoalbuminemia Thrombocytosis Chronic Normocytic anemia Acute on chronic thrombocytosis, POA Pseudo hyponatremia due to hyperglycemia POA Hyperkalemia, POA Severe dehydration, POA Medical noncompliance, POA History of cocaine, and marijuana abuse Active alcohol drinker, POA Homelessness, POA ] Home Medications: Active Scripts Thiamine HCl (Vitamin B-1) 100 Mg Tablet, 100 MG PO DAILY for 5 Days, #5 TAB Prov:RICKY SWAIN DIRECTIONAL DRILLER 08/16/24 Cefdinir (Cefdinir) 300 Mg Capsule, 1 CAP PO BID for 5 Days, #10 CAP 0 Refills Prov:RICKY SWAIN NP 08/16/24 Insulin NPH Hum/Reg Insulin Hm (Novolin 70-30 Flexpen) 100 Unit/Ml (70-30) Insuln.pen, 100 UNIT SQ BID for 30 Days, #1 SYRINGE Prov:RICKY SWAIN NP 08/16/24 Discontinued Reported Medications [Levemir] No Conflict Check 08/15/24 Discontinued Scripts Insuln Asp Prt/Insulin Aspart (Novolog Mix 70-30 Vial) 100 Unit/Ml (70-30) Vial, 20 UNIT SQ AM, #1 VIAL Prov:JEREMY GARCÍA AGPCNP 09/07/23 Time spent arranging discharge: 31-60 minutes ATTESTATION BY PHYSICIAN I have seen and examined the patient. I reviewed the documentation, medical decision making, and treatment plan as noted by the mid-level provider above. I agree with the findings and plan of care. DADA Silverman MD, APRN Aug 22, 2024 15:07
--- NOTE | 2024-08-22 16:00 | NUR ---
Patient DC home in stable conditions. Lyft voucher provided by warehouse analyst to [address] [place] [address] [facility] [id number]. Two Rx scripts given on hand for Insulin. IV removed. Patient escorted to ER main lobby walking. Patient reports being homeless. 2 Bottle gonzalez provided and two sandwiches given. Patient was informed to call 911 or come back if symptoms worsen. Patient understands and verbalizes Dc instructions.
== END 2024-08-22 16:05 | disposition home or self-care (01) | DRG 638 ==
LOC: EDH 11:54 → EDHIP 15:09 → 2CH 18:32
PROVIDERS: ADMIT Internal Medicine; ATTEND Internal Medicine
DX: E11.10 Type 2 diabetes mellitus with ketoacidosis without coma (principal); N17.9 Acute kidney failure, unspecified; Z59.00 Homelessness unspecified; N18.30 Chronic kidney disease, stage 3 unspecified; I12.9 Hypertensive chronic kidney disease with stage 1 through stage 4 chronic kidney disease, or unspecified chronic kidney disease; F32.A Depression, unspecified; F41.9 Anxiety disorder, unspecified; F12.10 Cannabis abuse, uncomplicated; E11.22 Type 2 diabetes mellitus with diabetic chronic kidney disease; E88.09 Other disorders of plasma-protein metabolism, not elsewhere classified; D75.839 Thrombocytosis, unspecified; D64.9 Anemia, unspecified; E86.0 Dehydration; E87.5 Hyperkalemia; E11.65 Type 2 diabetes mellitus with hyperglycemia; Y90.9 Presence of alcohol in blood, level not specified; F17.210 Nicotine dependence, cigarettes, uncomplicated; F10.20 Alcohol dependence, uncomplicated; Z79.899 Other long term (current) drug therapy; Z99.81 Dependence on supplemental oxygen; Z79.4 Long term (current) use of insulin
CPT/HCPCS: 36415; 36600; 71045; 71250; 80048; 80053; 80076; 80305; 81001; 82010; 82140; 82150; 82435; 82550; 82803; 82947; 82948; 83605; 83690; 83735; 83880; 84100; 84132; 84145; 84295; 84484; 85018; 85025; 85378; 87804; 93005; 94640; 94664; 96372; 96374; 99285; G0378; J1171; J1650; J1815; J2060; J2470; J2543; J3411; J3475; J3480; J3490; J7030